=== PATIENT | female | born 1970 | race Caucasian/White ===

== ENCOUNTER 2023-08-24 12:20 | Outpatient (CLI) | payer BC, SELFPAY ==
--- NOTE | ~2023-08-24 | MM_ITS ---
EXAMINATION: MM screening romero BI w russel HISTORY: Screening TECHNIQUE: Craniocaudal and mediolateral oblique 3-D tomosynthesis images were obtained and synthetic 2-D images were generated. CAD analysis was submitted and interpreted. COMPARISON: No prior mammogram is available for comparison at this institution. BREAST PARENCHYMAL COMPOSITION: Dense: The breasts are heterogeneously dense, which may obscure small masses FINDINGS: There is focal architectural distortion laterally in the right breast on CC view. No mammog raphic evidence for malignancy in the left breast. IMPRESSION: 1. Focal architectural distortion lateral aspect of the right breast on CC view. 2. Additional mammographic views and possible breast ultrasound are recommended. BI-RADS CATEGORY 0 - INCOMPLETE STUDY, NEED ADDITIONAL IMAGING EVALUATION. Reviewed, dictated and finalized at location B. IMPRESSION: 1. Focal architectural distortion lateral aspect of the right breast on CC view . 2. Additional mammographic views and possible breast ultrasound are recommended . BI-RADS CATEGORY 0 - INCOMPLETE STUDY, NEED ADDITIONAL IMAGING EVALUATION.
== END 2023-08-24 12:21 | disposition home or self-care (01) ==
LOC: CHSIMG 12:22
PROVIDERS: PCP Internal Medicine; Visit Provider Internal Medicine
DX: Z12.31 Encounter for screening mammogram for malignant neoplasm of breast (principal); R92.8 Other abnormal and inconclusive findings on diagnostic imaging of breast
CPT/HCPCS: 77063; 77067

== ENCOUNTER 2023-10-20 12:11 | Outpatient (CLI) | payer BC, SELFPAY ==
--- NOTE | ~2023-10-20 | MMUS_ITS ---
EXAMINATION: MM diagnostic romero RT w russel, US breast RT complete HISTORY: Follow-up right breast asymmetry TECHNIQUE: Additional 3-D tomosynthesis images of the right breast were performed and synthetic 2-D i mages were generated. CAD analysis was submitted and interpreted. High resolution complete right blad[address] st ultrasound was performed. COMPARISON: 08/24/2023 BREAST PARENCHYMAL COMPOSITION: Not dense: There are scattered areas of fibroglandular density. FINDINGS: MAMMOGRAPHIC FINDINGS: There are no suspicious masses, calcifications or architectural distortion in the right breast to sug gest malignancy. ULTRASOUND: Complete US of all 4 quadrants of the right breast and retroareolar region was reviewed. Normal heter ogeneous echotexture without focal solid or cystic mass. IMPRESSION: 1. No evidence for malignancy in the right breast. 2. Routine yearly screening mammogram and regular clinical breast examination are recommended. BI-RADS Category 1: Negative Reviewed, dictated and finalized at location B. IMPRESSION: 1. No evidence for malignancy in the right breast. 2. Routine yearly screening mammogram and regular clinical breast examination a re recommended. BI-RADS Category 1: Negative
== END 2023-10-20 12:12 | disposition home or self-care (01) ==
PROVIDERS: PCP Internal Medicine; Visit Provider Internal Medicine
DX: R92.8 Other abnormal and inconclusive findings on diagnostic imaging of breast (principal)
CPT/HCPCS: 76641; 77061; 77065; G0279

== ENCOUNTER 2024-04-14 11:32 | Outpatient (CLI) | payer BC, SELFPAY ==
--- NOTE | 2024-04-14 12:43 | ECG_ITS ---
Test Date: 2024-04-14 13:02:18 Measurements Intervals [place] Rate: 68 P: 53 VA: 165 QRS: 34 QRSD: 81 T: 41 QT: 396 QTc: 422 Interpretive Statements SINUS RHYTHM LOW QRS VOLTAGE IN PRECORDIAL LEADS [QRS DEFLECTION < 1.0 mV IN CHEST LEADS] POSSIBLE ANTERIOR MYOCARDIAL INFARCTION [30 ms Q WAVE IN V3/V4, OR R < 0.2 mV IN V4], PROBABLY OLD No previous ECG available for comparison Electronically Signed On 04-14-2024 13:03:35 SHEEP CLIPPER by Arturo Hernandez M.D.
[2024-04-14 13:15] LABS: Basophils Percent Auto 0.5 % (0.2-1.2); Eosinophils Absolute Auto 0.1 K/mm3 (0-0.3); Eosinophils Percent Auto 1.9 % (0-4.4); Hematocrit 42.3 % (37.0-47.0); Hemoglobin 14.5 g/dL (12.0-15.0); Immature Granulocyte Absolute 0.01 K/mm3 (0.00-0.031); Immature Granulocyte Percent A 0.2 % (0-0.5); Lymphocytes Absolute Auto 1.43 K/mm3 (0.9-3.2); Mean Corpuscular HGB Conc 34.3 g/dl (32-36); Mean Corpuscular Hemoglobin 30.8 pg (26-34); Mean Corpuscular Volume 89.8 fl (80-100); Mean Platelet Volume 9.8 fl (7.4-10.4); Monocytes Absolute Auto 0.4 K/mm3 (0.1-0.6); Monocytes Percent Auto 7.5 % (2.6-8.5); Neutrophils Absolute Auto 3.7 K/mm3 (1.3-6.7); Neutrophils Percent Auto 64.9 % (45.5-73.1); Platelet Count Result 182 k/mm3 (150-375); Red Blood Count 4.71 M/mm3 (4.2-5.4); Red Cell Distribution Width 12.3 % (11.5-14.5); White Blood Count 5.7 K/mm3 (4.5-10.0)
[2024-04-14 13:38] LABS: INR 0.9; Prothrombin Time 13.1 Seconds (11.1-14.7)
[2024-04-14 13:40] LABS: Partial Thromboplastin Time 32.4 Seconds (22.3-36.8)
[2024-04-14 13:44] LABS: Alanine Aminotransferase 25 U/L (6-35); Albumin Level 4.8 g/dL (3.5-5.1); Alkaline Phosphatase 98 U/L (38-126); Anion Gap 5 mmol/L (4-12); Aspartate Amino Transferase 32 U/L (14-36); Bilirubin,Total 0.7 mg/dL (0.2-1.3); Blood Urea Nitrogen 19 mg/dL (7-17); Calcium 9.7 mg/dL (8.4-10.2); Carbon Dioxide 27 mmol/L (22-30); Chloride 104 mmol/L (98-107); Estimated Glomerular Filt Rate > 60; Glucose 90 mg/dL (65-110); Sodium 136 mmol/L (137-145)
== END 2024-04-14 11:33 | disposition home or self-care (01) ==
LOC: ANHSURGERY 11:41
PROVIDERS: Urology; PCP Internal Medicine; Visit Provider Obstetrics & Gynecology
DX: R94.31 Abnormal electrocardiogram [ECG] [EKG] (principal); N81.4 Uterovaginal prolapse, unspecified; I10 Essential (primary) hypertension
CPT/HCPCS: 36415; 80053; 85025; 85610; 85730; 86850; 86900; 86901; 93005

== ENCOUNTER 2024-05-04 15:34 | Outpatient (CLI) | payer BC, SELFPAY ==
--- NOTE | 2024-05-04 | ECHO_ITS ---
Patient Info Name: Raine Cota Age: 53 years : 1970 Gender: Female Ht: 62 in Wt: 170 lbs BSA: 1.87 m2 HR: 61 bpm BP: 158 / 99 mmHg Technical Quality: Good Exam Date: 05/04/2024 3:45 PM Exam Location: Echo Lab Patient Status: Outpatient Admit Date: 05/04/2024 Staff Ordering Physician: Delroy Miller MD Sleep Scientist: Olesya Munson RDCS Attending Provider: Delroy Miller MD Exam Type: CA echo doppler color flow Study Info Indications - ABNORMAL EKG Complete two-dimensional, color flow and Doppler transthoracic echocardiogram is performed. Summary 1. Complete two-dimensional, color flow and Doppler transthoracic echocardiogram is performed. 2. LVEF. 71% MR mild TR trace. Left Ventricular Outflow Tract Name Value Normal LVOT 2D LVOT Diameter 1.8 cm LVOT Doppler LVOT Peak Gradient 3 mmHg LVOT Mean Gradient 2 mmHg LVOT VTI 22 cm LVOT VTI/AV VTI Ratio 0.7 LVOT Stroke Volume 58 ml LVOT CO 2.8 l/min LVOT CI 1.5 l/min/m2 Pulmonic Valve Name Value Normal RVOT Doppler RVOT Peak Gradient 2 mmHg PV Doppler PV Peak Gradient 2 mmHg Mitral Valve Name Value Normal MV Doppler MV Peak Gradient 4 mmHg MV Mean Gradient 1 mmHg MV Decel [place] 444 cm/s2 MV PHT 50 ms MV Area (PHT) 4.4 cm2 4.0-5.0 MV Area (Cont Eq VTI) 1.7 cm2 MV Diastolic Function MV E Peak Velocity 77 cm/s MV A Peak Velocity 80 cm/s MV E/A 1.0 MV Decel Time 174 ms MV Annular TDI MV E/e' (Septal) 7.1 <=8.0 MV E/e' (Lateral) 6.3 <=8.0 MV E/e' (Average) 6.7 Tricuspid Valve Name Value Normal Estimated PAP/RSVP RA Pressure 10 mmHg <=5 Aorta Name Value Normal Ascending Aorta Ao Root Diameter (MM) 3.3 cm Ao Root Diam Index (MM) 1.8 cm/m2 Aortic Valve Name Value Normal AV Doppler AV Peak Velocity 152 cm/s AV Peak Gradient 9 mmHg AV Mean Gradient 4 mmHg AV VTI 33 cm AV Area (Cont Eq VTI) 1.7 cm2 >=3.0 AV Area (Cont Eq Renzo) 1.6 cm2 AV Regurgitation 2D LVOT Area 2.7 cm2 Ventricles Name Value Normal LV Dimensions 2D/MM IVS Diastolic Thickness (2D) 1.3 cm 0.6-1.0 LVID Diastole (2D) 4.1 cm 3.8-5.2 LVIW Diastolic Thickness (2D) 1.2 cm 0.6-0.9 LVID Systole (2D) 2.7 cm 2.2-3.5 LVOT Diameter 1.8 cm LV Mass (2D Cubed) 187.07 g 67.00-162.00 LV Mass Index (2D Cubed) 100 g/m2 43-95 Relative Wall Thickness (2D) 0.60 LV Fractional Shortening/Ejection Fraction 2D/MM LV Fractional Shortening (2D) 34 % 27-45 LV EF (2D Teicholz) 64 % 54-74 LV Diastolic Volume (4C MOD) 67 ml LV EF (4C MOD) 69 % LV Diastolic Volume (2C MOD) 77 ml LV EF (2C MOD) 76 % LV Diastolic Volume (BP MOD) 72 ml 46-106 LV Diastolic Volume Index (BP MOD) 39 ml/m2 29-61 LV Systolic Volume (BP MOD) 21 ml 14-42 LV Systolic Volume Index (BP MOD) 11 ml/m2 8-24 LV EF (BP MOD) 71 % 54-74 LV Diastolic Length (4C) 7.6 cm LV Systolic Length (4C) 6.3 cm LV Stroke Volume (4C MOD) 46 ml Atria Name Value Normal LA Dimensions LA Dimension (MM) 3.0 cm 2.7-3.8 LA Volume (4C A-L) 23 ml LA Volume (BP A-L) 29 ml RA Dimensions RA Area (4C) 10.0 cm2 <=18.0 Report Signatures
== END 2024-05-04 15:35 | disposition home or self-care (01) ==
PROVIDERS: PCP Internal Medicine; Visit Provider Internal Medicine
DX: R94.31 Abnormal electrocardiogram [ECG] [EKG] (principal); I25.2 Old myocardial infarction
CPT/HCPCS: 93306

== ENCOUNTER 2024-06-05 00:39 | Day surgery (SDC) | payer BC, SELFPAY ==
[2024-04-14 11:56] VITALS: BP 139/88; PULSE 82; RESP 16; TEMP 37.2; O2SAT 98; BMI 30.9
--- NOTE | 2024-04-14 12:15 | PC.NURSE ---
Addendum entered by Jed Jones RN 05/26/24 13:14: Spoke with patient, New surgery date 06-05-2024 to arrive at 1000 for 1200 surgery. Hold vitamins 06-02-2024. All other instructions reviewed with patient. Original Note: Report to the Outpatient Waiting Room, entrance under the green pavilion located off [facility], at time ___10:00____ on date ___04/24/24____. Planned Procedure Time: ___12:00PM .? Time changes happen often and if your time is changed the preop area will call you the afternoon before. - You and your visitor will be asked to self-screen and do not enter if you have any COVID symptoms. Please call surgeon if you need to reschedule. - A mask is optional within the hospital at this time. Patients may have clear liquids (water, carbonated beverages, clear teas, apple juice) until 3 hours prior to surgery with a maximum of 20 ounces. - No food from midnight until time of surgery and no smoking. This includes no chewing gum, candy or mints. Take only the following medications with a SIP of water on the morning of surgery: AMLODIPINE, FLUOXETINE DO NOT STOP ANY OF YOUR OTHER PRESCRIPTION MEDICATIONS PRIOR TO SURGERY EXCEPT THE FOLLOWING Medications to discontinue per physician __HOLD ALL VITAMINS/SUPPLEMENTS 7 DAYS Date to take last dose___04/16/24 Please no make-up, nail tamazight, hairspray, perfume, deodorant, or body powder the day of surgery.? No jewelry (including any body piercings) or valuables the day of surgery, leave them at home.? Please take a shower or bath the night before, or the morning of, surgery with an antibacterial soap.? Wear comfortable, loose fitting clothing.? - Jewelry must be removed prior to entering the operating room.? Rings and piercings that are not removed may be cut off. - The hospital will not accept responsibility for valuables.? - Please leave all valuables, including medications, at home the day of surgery. If you are going home after surgery, a licensed river driver must drive you home.? - NO public transportation without another adult if you receive anesthesia. - We recommend that an adult stay with you for 24 hours following discharge. - We also recommend that you do not drive, make important decision, drink alcoholic beverages, or take any drugs that were not prescribed by your health care provider for at least 24 hours after your discharge time. Follow any additional instructions given to you from your surgeon. Telephone instructions given to ___PATIENT and asked if any additional questions and then verbalized understanding. Patient advised to call surgeon office or pre surgery nurse liaison [phone] if any additional questions.
--- NOTE | 2024-04-18 12:16 | P.HP_ITS ---
H&P: HPI History of Present Illness Date/Time: 04/18/24 12:16 Chief Complaint: Pelvic prolapse Narrative: 53-year-old female admitted for robotic supracervical hysterectomy and bilateral salpingo-oophorectomy secondary to uterine prolapse she also undergo sacral colpopexy with the Dr. Angel risks and benefits reviewed in great detail she had all questions answered and asked to proceed Review of Systems Review of Systems: All systems reviewed & are unremarkable except as noted in HPI and below PMFSH Social History Social History Smoking packs per day: 1 Smoking cigarettes per day: 20.0 Years smoked: 20 Smoking pack-years: 20.00 Smoking status: Current every day smoker Tobacco type: cigarettes and e-cigarettes/vaping Additional smoking assessment comments: VAPES ON AND OFF ALL DAY, QUIT CIGARETTES IN 2010 Alcohol intake: current Drinks per week: 4 Living arrangements: with family Additional living arrangements comments: HUSB Spiritual care concerns: No Meds Home Medications and Allergies Home Medications ?Medication ?Instructions ?Recorded ?Confirmed ?Type amlodipine 5 mg tablet 5 mg PO QAM 04/14/24 04/14/24 History calcium carbonate 600 mg PO DAILY 04/14/24 04/14/24 History fluoxetine 10 mg capsule 10 mg PO DAILY 04/14/24 04/14/24 History lysine 1,000 mg tablet 4,500 mg PO DAILY 04/14/24 04/14/24 History pantoprazole 40 mg tablet,delayed 40 mg PO DAILY PRN REFLUX 04/14/24 04/14/24 History release Allergies Allergy/AdvReac Type Severity Reaction Status Date / Time penicillin G Allergy Hives Verified 04/14/24 11:50 oxybutynin AdvReac Vomiting, Verified 04/14/24 11:50 DIARRHEA Exam Const: General: cooperative, healthy appearing, comfortable and no acute distress Nutritional Appearance: average body habitus Orientation/consciousness: oriented to person, oriented to place and oriented to time HENMT: Head: normal to inspection Resp: Effort & Inspection: normal respiratory effort Cardio: Rate: regular rate Rhythm: regular rhythm Heart sounds: S1 normal heart sound present and S2 normal heart sound present GI: Inspection: normal to inspection : External Female Exam: normal external appearance Speculum Exam - Vagina: normal appearance of the vagina Speculum Exam - Cervix: normal appearance of the cervix (Second-degree to third-degree prolapse) Bimanual exam- vagina & uterus: non-tender Bimanual Exam- Adnexa, other: normal adnexae Assessment and Plan Assessment and plan (1) Uterine prolapse: Code(s): N81.4 - Uterovaginal prolapse, unspecified Status: Acute Plan Proceed with robotic supracervical hysterectomy and bilateral salpingo- oophorectomy
--- NOTE | 2024-05-26 13:15 | PC.NURSE ---
Patient says no changes in health hx since preop interview.
--- NOTE | 2024-06-02 08:20 | P.HP_ITS ---
H&P: HPI History of Present Illness Date/Time: 06/02/24 08:20 Chief Complaint: pelvic organ prolapse, stress incontinence Narrative: she has symptomatic uterine prolapse and stress incontinence confirmed on urod ynamics Review of Systems Review of Systems: All systems reviewed & are unremarkable except as noted in HPI and below PMFSH Social History Social History Smoking packs per day: 1 Smoking cigarettes per day: 20.0 Years smoked: 20 Smoking pack-years: 20.00 Smoking status: Current every day smoker Tobacco type: cigarettes and e-cigarettes/vaping Additional smoking assessment comments: VAPES ON AND OFF ALL DAY, QUIT CIGARETTES IN 2010 Alcohol intake: current Drinks per week: 4 Living arrangements: with family Additional living arrangements comments: [facility]USB Spiritual care concerns: No Meds Home Medications and Allergies Home Medications ?Medication ?Instructions ?Recorded ?Confirmed ?Type amlodipine 5 mg tablet 5 mg PO QAM 04/14/24 04/14/24 History calcium carbonate 600 mg PO DAILY 04/14/24 04/14/24 History fluoxetine 10 mg capsule 10 mg PO DAILY 04/14/24 04/14/24 History lysine 1,000 mg tablet 4,500 mg PO DAILY 04/14/24 04/14/24 History pantoprazole 40 mg tablet,delayed 40 mg PO DAILY PRN REFLUX 04/14/24 04/14/24 History release Allergies Allergy/AdvReac Type Severity Reaction Status Date / Time penicillin G Allergy Hives Verified 05/26/24 13:11 oxybutynin AdvReac Vomiting, Verified 05/26/24 13:11 DIARRHEA Exam Narrative: hypermobility of the urethra uterine prolapse to the level of the introitus Assessment and Plan Assessment and plan (1) Uterine prolapse: Code(s): N81.4 - Uterovaginal prolapse, unspecified Status: Acute (2) VIJI (stress urinary incontinence, female): Code(s): N39.3 - Stress incontinence (female) (male) Status: Acute Plan plan for robotic colpopexy and urethral sling. Understands risks of bleeding, infection, damage surrounding organs, damage to the urinary tract, vaginal mesh extrusion, urinary tract mesh erosion, diskitis, hip and leg pain, dyspareunia, persistent or recurrent stress incontinence or prolapse. Agrees to proceed
--- NOTE | 2024-06-04 16:06 | P.HP_ITS ---
H&P: HPI History of Present Illness Date/Time: 06/04/24 16:06 Chief Complaint: uterine prolapse Narrative: 53 year 2 para 2 seen in conjunction with Dr. Angel for patient complaining of stress urinary incontinence and uterine prolapse. After discussing both position she opts for robotic supracervical hysterectomy and bilateral salpingo-oophorectomy. She understands removal of her ovaries will ma ke her permanently infertile and the risks benefits pulse socially physically were reviewed with. Risks and benefits of the procedure reviewed including but not exclusive , aspiration, bleeding, transfusion, perforation injury to bowel, bladder, ureters, or other internal organs with the need for open laparotomy. She received the ACOG handout entitled hysterectomy as well as the de [place] handout. She had all questions answered. She asked to proceed Review of Systems Review of Systems: All systems reviewed & are unremarkable except as noted in HPI and below PMFSH Social History Social History Smoking packs per day: 1 Smoking cigarettes per day: 20.0 Years smoked: 20 Smoking pack-years: 20.00 Smoking status: Current every day smoker Tobacco type: cigarettes and e-cigarettes/vaping Additional smoking assessment comments: VAPES ON AND OFF ALL DAY, QUIT CIGARETTES IN 2010 Alcohol intake: current Drinks per week: 4 Living arrangements: with family Additional [facility] Spiritual care concerns: No Meds Home Medications and Allergies Home Medications ?Medication ?Instructions ?Recorded ?Confirmed ?Type amlodipine 5 mg tablet 5 mg PO QAM 04/14/24 04/14/24 History calcium carbonate 600 mg PO DAILY 04/14/24 04/14/24 History fluoxetine 10 mg capsule 10 mg PO DAILY 04/14/24 04/14/24 History lysine 1,000 mg tablet 4,500 mg PO DAILY 04/14/24 04/14/24 History pantoprazole 40 mg tablet,delayed 40 mg PO DAILY PRN REFLUX 04/14/24 04/14/24 History release Allergies Allergy/AdvReac Type Severity Reaction Status Date / Time penicillin G Allergy Hives Verified 05/26/24 13:11 oxybutynin AdvReac Vomiting, Verified 05/26/24 13:11 DIARRHEA Exam Const: General: cooperative, healthy appearing and comfortable Nutritional Appearance: average body habitus Orientation/consciousness: oriented to person, oriented to place and oriented to time HENMT: Head: normal to inspection Resp: Effort & Inspection: normal respiratory effort Cardio: Rate: regular rate Rhythm: regular rhythm Heart sounds: S1 normal heart sound present and S2 normal heart sound present GI: Inspection: normal to inspection : External Female Exam: normal external appearance Speculum Exam - Vagina: normal appearance of the vagina Speculum Exam - Cervix: normal appearance of the cervix ( 2nd and 3rd degree prolapse present) Bimanual exam- vagina & uterus: uterine size normal Bimanual Exam- Adnexa, other: normal adnexae Assessment and Plan Assessment and plan (1) Uterine prolapse: Code(s): N81.4 - Uterovaginal prolapse, unspecified Status: Acute (2) VIJI (stress urinary incontinence, female): Code(s): N39.3 - Stress incontinence (female) (male) Status: Acute Plan proceed with robotic supracervical hysterectomy and bilateral salpingo- oophorectomy
[2024-06-05] VITALS (9 sets, daily range): BP systolic 115–148; BP diastolic 65–87; PULSE 60–90; RESP 10–20; TEMP 36.2–37.3; O2SAT 94–100
--- OUTSIDE RECORDS SUMMARY | 2024-06-05 00:43 | XMS_ITS | Clinical Summary ---
Author Organization [facility] Address [address] [place] [address]. [place] [address] [place] [address] Care Team Providers Care Division Manager Name Role Phone Unavailable Primary Care Provider Unavailabl e Social History Tobacco Use Types Packs/Day Years Used Date Smoking Tobacco: Never Assessed Comments Unknown Sex and Gender Information Value Date Recorded Sex Assigned at Not on file Legal Sex Female 6:11 PM CDT Gender Identity Not on file Sexual Orientation Not on file Last Filed Vital Signs Vital Sign Reading Time Taken Comments Blood Pressure 140/82 10/25/2012 11:11 AM CDT Pulse - - Temperature - - Respiratory Rate - - Oxygen Saturation - - Inhaled Oxygen Concentration - - Weight 73 kg (161 lb) 10/25/2012 11:11 AM CDT Height 165.1 cm (5' 5 ) 10/25/2012 11:11 AM CDT Body Mass Index 26.79 10/25/2012 11:11 AM CDT Plan of Treatment Health Maintenance Due Date Last Done Comments Cervical Cancer Screening Pa p Smear (Age 30 to 64) Every 3 Years 1972 Colorectal Cancer Screening Colonoscopy (10 Years) 1972 Annual Physical 07/30/1975 Hepatitis C 1990 DTaP, Tdap and Td Vaccines ( 1 - Tdap) 07/30/1991 Hepatitis B Vaccines (1 of 3 - 19+ 3-dose series) 07/30/1991 Cervical Cancer Screening Pa p with HPV Testing (Age 30 to 64) Every 5 Years 2002 Cervical Cancer Screening with HPV 2002 Mammogram Screening 2012 Zoster Vaccines (1 of 2) 2022 COVID-19 Vaccine ( - 2023-2 5 season) 2024 Influenza Adult (#1) 2024 Meningococcal B Vaccine Aged Out No l onger eligible based on patient's age to complete this topic Meningococcal Vaccine Aged Out No gerardo nel eligible based on patient's age to complete this topic Pneumococcal Vaccine: Pediat rics (0 to 5 Years) and At-Risk Patients (6 to 64 Years) Aged Out No longer eligible b ased on patient's age to complete this topic RSV Immunizations Under 20 Months Aged Out No longer eligible based on patient's age to complete this topic
--- OUTSIDE RECORDS SUMMARY | 2024-06-05 00:43 | XMS_ITS | Clinical Summary ---
Author Organization [facility] Address [address] [place] [address] Care Team Providers Care Engineer Soils Name Role Phone Delroy Miller MD Primary Care Provider Allergies Active Allergy Reactions Criticality Noted Date Comments Penicillins Hives Medium 04/13/2013 Hives Medications amLODIPine (NORVASC) 5 mg tablet 04/09/2022 Active aspirin 81 mg enteric coated tablet Take 1 tablet (81 mg total) by mouth daily Active multivitamin tabletIndication s:Vitamin Deficiency Prevention Take 1 tablet by mouth Active calcium carbonate-vit D3-min 600 mg calcium- 200 unit tablet Take by mouth Active vitfzxsu-tzcj-ly llag-hyalur ac [id number] mg capsule Take by mouth Active FLUoxetine 10 mg tablet/capsule Take 1 tablet/caps ule (10 mg total) by mouth daily 90 tablet/capsul e 1 12/21/2023 Active Active Problems No known active problems Encounters Date Type Department Care Team Description 04/03/2024 Documentation [facility] [address] [place] [phone] Diana Davis RN 04/03/2024 Orders Only [facility] [address] [place] [phone] Diana Davis, RN Multiple sclerosis (HCC) (Primary Dx) 03/14/2024 9:45 PM ESTATE TAX EXAMINER - 03/14/2024 11:59 PM ESTATE TAX EXAMINER Hospital Encounter [facility] [address] [place] [address] Discharge Disposition: Discharge to home or self care 03/14/2024 9:44 PM ESTATE TAX EXAMINER - 03/14/2024 11:59 PM ESTATE TAX EXAMINER Hospital Encounter [facility]) [address] [place] [id number] Discharge Disposition: Discharge to home or self care 03/14/2024 1:30 PM ESTATE TAX EXAMINER Office Visit [facility] [address] [place] [phone] Merrick Yuen MD Multiple sclerosis (HCC) (Primary Dx) 03/14/2024 8:52 AM ESTATE TAX EXAMINER - 03/14/2024 11:59 PM ESTATE TAX EXAMINER Hospital Encounter [facility] [address] [place] [address] Merrick Yuen MD Multiple sclerosis (HCC) Discharge Disposition: Discharge to home or self care 03/14/2024 8:51 AM ESTATE TAX EXAMINER - 03/14/2024 11:59 PM ESTATE TAX EXAMINER Hospital Encounter [facility] [address] [place] [address] Merrick Yuen MD Multiple sclerosis (HCC) Discharge Disposition: Discharge to home or self care from Last 3 Months Social History Tobacco Use Types Packs/Day Years Used Date Smoking Tobacco: Former Cigarettes S tarted: 12/08/2012 Tobacco Cessation:Counseling Given: Not Answered Comments Unknown Sex and Gender Information Value Date Recorded Sex Assigned at Not on file Legal Sex Female 3:13 AM ESTATE TAX EXAMINER Gender Identity Female 03/10/2024 5:43 AM CDT Sexual Orientation Straight 03/10/2024 5: 43 AM CDT Obstetrics History Last Filed Vital Signs Vital Sign Reading Time Taken Comments Blood Pressure 112/80 03/14/2024 12:51 PM ESTATE TAX EXAMINER Pulse 103 03/14/2024 12:51 PM ESTATE TAX EXAMINER Temperature 36.3 ??C (97.3 ??F) 03/14/2024 12:[address] Respiratory Rate - - Oxygen Saturation 95% 04/07/2013 11:47 AM ESTATE TAX EXAMINER Inhaled Oxygen Concentration - - Weight 75.8 kg (167 lb 3.2 oz) 03/14/2024 12:51 PM ESTATE TAX EXAMINER Height 157.5 cm (5' 2 ) 04/07/2013 11:47 AM ESTATE TAX EXAMINER Body Mass Index - - Plan of Treatment Health Maintenance Due Date Last Done Comments Cervical Cancer Screening 1972 Colon Cancer Screening-Colonoscopy 1972 Depression Screening 1972 Hepatitis C Screening 1972 Hepatitis B Screening 1990 Regular Well Visit/Exam 18-64 1990 Breast Cancer Screening-Mammogram 04/27/2014 013 Zoster Vaccine (2 of 2) 10/15/2023 08/20/2023 Influenza Vaccine (#1) 2024 DTaP/Tdap/Td Vaccine (2 - Td or Tdap) 2033 07/30/2023 Pneumococcal vaccine <65 Aged Out No longer eligible based on patient's age to complete this topic Procedures Procedure Name Priority Date/Time Associated Diagnosis Comments NEURO MR OUTSIDE REFERENCE Routine 03/14/2024 9:45 PM ESTATE TAX EXAMINER NEURO MR OUTSIDE REFERENCE Routine 03/14/2024 9:44 PM ESTATE TAX EXAMINER MRI SPINE CERVICAL THORACIC W WO CONTRAST Schedule Routine, Read Routine (OP Routine) 03/14/2024 11:58 AM ESTATE TAX EXAMINER Multiple sclerosis (HCC) MRI MS BRAIN 3T PROTOCOL W WO CONTRAST Schedule Routine, Read Routine (OP Routine) 03/14/2024 11:58 AM ESTATE TAX EXAMINER Multiple sclerosis (HCC) SCREENING MAMMOGRAM 2D BILATERAL Routine 04/27/2013 8:03 AM ESTATE TAX EXAMINER from Last 3 Months or Most Recently Relevant to Health Maintenance Results * Neuro MR Outside Reference (03/14/2024 9:45 PM ESTATE TAX EXAMINER) Impressions [facility] - 03/14/2024 9:45 PM ESTATE TAX EXAMINER These images are for Reference purposes only and have not been reviewed by [facility]. ??There will be no report generated by a [facility]iologist. Narrative [facility] - 03/14/2024 9:45 PM ESTATE TAX EXAMINER EXAMINATION: ??Images For Reference Purposes Only us Min Wilfrid SAVAGE IMG MRI PROCEDURES Final Result [email or web address] * Neuro MR Outside Reference (03/14/2024 9:44 PM ESTATE TAX EXAMINER) Impressions [facility] - 03/14/2024 9:44 PM ESTATE TAX EXAMINER These images are for Reference purposes only and have not been reviewed by [facility]. ??There will be no report generated by a [facility]iologist. Narrative [facility] - 03/14/2024 9:44 PM ESTATE TAX EXAMINER EXAMINATION: ??Images For Reference Purposes Only us Min Wilfrid SAVAGE IMG MRI PROCEDURES Final Result Performing Organization Address [facility] Co de Phone Number [email or web address] * MRI Spine Cervical and Thoracic W WO Contrast (03/14/2024 11:58 AM ESTATE TAX EXAMINER) Anatomical Region Laterality Modality Spine N/A Magnetic Resonan ce 03/14/2024 1:37 PM ESTATE TAX EXAMINER Impressions 03/14/2024 2:40 PM ESTATE TAX EXAMINER 1. ??Overall increase in number of intracranial T2 hyperintense lesions when compared to examination from 2019. ??Many of these lesions exhibit central vein sinuses read in detail above. ??No suspicious enhancing lesions in the brain. 2. ??Multiple T2 hyperintensities within the cervical spinal cord at C2 and C3 compatible with demyelinating spinal lesions. ??No suspicious enhancing lesion in the spinal cord. 3. ??Degenerative changes in the cervical spine without to moderate canal stenosis at C5-C6. 4. ??No significant degenerative changes in the thoracic spine. Dictated by: Steve Chappell MD The radiology attending physician has personally reviewed this study, and had reviewed and/or edited this written report and agrees with it. Electronically signed by: Yogesh Gardiner MD Narrative 03/14/2024 2:40 PM ESTATE TAX EXAMINER EXAMINATION: 1. Magnetic resonance imaging (MRI) of the brain and brainstem without and with contrast 2. Magnetic resonance imaging (MRI) of the cervical spine without and with contrast 3. Magnetic resonance imaging (MRI) of the thoracic spine without and with contrast HISTORY: Multiple sclerosis TECHNIQUE: Multiplanar multi-weighted MRI of the brain, brainstem was performed without and with intravenous contrast using the multiple sclerosis protocol, which includes high resolution 3D T1-weighted, FLAIR, and T2*-weighted gradient echo images. Multiplanar multi-weighted MRI of the cervical spine was performed without and with intravenous contrast using the standard protocol. Multiplanar multi-weighted MRI of the thoracic was performed without and with intravenous contrast using the standard protocol. Scanner: [employer] Strength: 3T Contrast information: 14 mL Gadoterate Meglumine The post-contrast scan was performed approximately 5 minutes after IV contrast administration. COMPARISON: 05/25/2018, FINDINGS: BRAIN: There are multiple foci of hyperintensity on FLAIR and T2-weighted images within the white matter compatible with demyelinating plaques of multiple sclerosis. ??When compared to examination 05/25/2018, while assessment is limited by lack of transaxial FLAIR sequence on the comparison study there appears to be increasing conspicuity and number of T2/FLAIR hyperintensities noted throughout the brain. This includes periventricular, callosal, cortical or juxtacortical, and brainstem lesions. ?? New Brain T2 Lesions: Greater than 15 T1 Hypointense Black Holes : Greater than 15 Enhancing Brain Lesions: 0 T2/FLAIR [place] of Disease: Moderate, between 10 and 30 typical lesions Parenchymal Volume Loss: None Central Vein Sign: 6 or more CVS+ lesions, reference lesions including series [id number] images 108, 110, 102 The visualized portions of the optic nerves are normal. The scalp and calvarium are normal. The superior sagittal sinus demonstrates normal venous flow. The corpus callosum is normal in shape and signal intensity. The posterior fossa is unremarkable. The pituitary and sella are normal. The brainstem and craniocervical junction are unremarkable. Diffusion weighted images reveal no hyperintensities to suggest acute cerebral infarction. The susceptibility weighted sequences reveal no evidence of acute or chronic hemorrhage. The ventricles are normal in size and position without evidence of hydrocephalus. The paranasal sinuses are normal. The visualized portions of the mastoids are unremarkable. The orbits appear normal. Normal flow voids are demonstrated in the carotid arteries and basilar artery. CERVICAL SPINE: New Spine T2 Lesions: 2 (series [id number] images 19, 18) Enhancing Spine Lesions: 0 Multiple degenerative changes noted throughout cervical spine including stepwise retrolisthesis of C5-C7 and focal cervical kyphosis centered at C7. ??Multilevel degenerative disc disease is also noted. Vertebral bodies demonstrate normal signal intensity on all sequences. No acute fracture is identified. Degenerative changes noted about the craniocervical junction. The visualized portions of the skull base and the posterior fossa are normal. Abnormal signal enhancement is present within the dorsal spinal cervical spinal cord at the level of C2, C3 (series [id number] since images 14, 18, 19). Mild multilevel degenerative disc disease. There are no annular fissures identified. No soft tissue abnormality is identified. Normal signal voids are present in the vertebral arteries. Multilevel degenerative changes noted throughout the cervical spine without to moderate canal stenosis at C5-C6 and severe left neural foraminal stenosis at that level. THORACIC SPINE: New Spine T2 Lesions: 0 Enhancing Spine Lesions: 0 The alignment of the thoracic spine is normal. Vertebral bodies demonstrate normal signal intensity on all sequences. There are no compression fractures. The spinal cord demonstrates normal signal intensity on all sequences. Mild multilevel degenerative disc disease. Limited views of the chest and abdomen show no soft tissue abnormality. The aorta is normal. Procedure Note Yogesh Gardiner MD - 03/14/2024 EXAMINATION: 1. Magnetic resonance imaging (MRI) of the brain and brainstem without and with contrast 2. Magnetic resonance imaging (MRI) of the cervical spine without and with contrast 3. Magnetic resonance imaging (MRI) of the thoracic spine without and with contrast HISTORY: Multiple sclerosis TECHNIQUE: Multiplanar multi-weighted MRI of the brain, brainstem was performed without and with intravenous contrast using the multiple sclerosis protocol, which includes high resolution 3D T1-weighted, FLAIR, and T2*-weighted gradient echo images. Multiplanar multi-weighted MRI of the cervical spine was performed without and with intravenous contrast using the standard protocol. Multiplanar multi-weighted MRI of the thoracic was performed without and with intravenous contrast using the standard protocol. Scanner: [employer] Strength: 3T Contrast information: 14 mL Gadoterate Meglumine The post-contrast scan was performed approximately 5 minutes after IV contrast administration. COMPARISON: 05/25/2018, FINDINGS: BRAIN: There are multiple foci of hyperintensity on FLAIR and T2-weighted images within the white matter compatible with demyelinating plaques of multiple sclerosis. When compared to examination 05/25/2018, while assessment is limited by lack of transaxial FLAIR sequence on the comparison study there appears to be increasing conspicuity and number of T2/FLAIR hyperintensities noted throughout the brain. This includes periventricular, callosal, cortical or juxtacortical, and brainstem lesions. New Brain T2 Lesions: Greater than 15 T1 Hypointense Black Holes : Greater than 15 Enhancing Brain Lesions: 0 T2/FLAIR [place] of Disease: Moderate, between 10 and 30 typical lesions Parenchymal Volume Loss: None Central Vein Sign: 6 or more CVS+ lesions, reference lesions including series [id number] images 108, 110, 102 The visualized portions of the optic nerves are normal. The scalp and calvarium are normal. The superior sagittal sinus demonstrates normal venous flow. The corpus callosum is normal in shape and signal intensity. The posterior fossa is unremarkable. The pituitary and sella are normal. The brainstem and craniocervical junction are unremarkable. Diffusion weighted images reveal no hyperintensities to suggest acute cerebral infarction. The susceptibility weighted sequences reveal no evidence of acute or chronic hemorrhage. The ventricles are normal in size and position without evidence of hydrocephalus. The paranasal sinuses are normal. The visualized portions of the mastoids are unremarkable. The orbits appear normal. Normal flow voids are demonstrated in the carotid arteries and basilar artery. CERVICAL SPINE: New Spine T2 Lesions: 2 (series [id number] images 19, 18) Enhancing Spine Lesions: 0 Multiple degenerative changes noted throughout cervical spine including stepwise retrolisthesis of C5-C7 and focal cervical kyphosis centered at C7. Multilevel degenerative disc disease is also noted. Vertebral bodies demonstrate normal signal intensity on all sequences. No acute fracture is identified. Degenerative changes noted about the craniocervical junction. The visualized portions of the skull base and the posterior fossa are normal. Abnormal signal enhancement is present within the dorsal spinal cervical spinal cord at the level of C2, C3 (series [id number] since images 14, 18, 19). Mild multilevel degenerative disc disease. There are no annular fissures identified. No soft tissue abnormality is identified. Normal signal voids are present in the vertebral arteries. Multilevel degenerative changes noted throughout the cervical spine without to moderate canal stenosis at C5-C6 and severe left neural foraminal stenosis at that level. THORACIC SPINE: New Spine T2 Lesions: 0 Enhancing Spine Lesions: 0 The alignment of the thoracic spine is normal. Vertebral bodies demonstrate normal signal intensity on all sequences. There are no compression fractures. The spinal cord demonstrates normal signal intensity on all sequences. Mild multilevel degenerative disc disease. Limited views of the chest and abdomen show no soft tissue abnormality. The aorta is normal. IMPRESSION: 1. Overall increase in number of intracranial T2 hyperintense lesions when compared to examination from 2019. Many of these lesions exhibit central vein sinuses read in detail above. No suspicious enhancing lesions in the brain. 2. Multiple T2 hyperintensities within the cervical spinal cord at C2 and C3 compatible with demyelinating spinal lesions. No suspicious enhancing lesion in the spinal cord. 3. Degenerative changes in the cervical spine without to moderate canal stenosis at C5-C6. 4. No significant degenerative changes in the thoracic spine. Dictated by: Steve Chappell MD The radiology attending physician has personally reviewed this study, and had reviewed and/or edited this written report and agrees with it. Electronically signed by: Yogesh Gardiner MD Merrick Yuen MD IMG MRI PROCEDURES Final Result * MRI MS Brain 3T Protocol W WO Contrast (03/14/2024 11:58 AM ESTATE TAX EXAMINER) Anatomical Region Laterality Modality Head and Neck N/A Magnetic Resonan ce 03/14/2024 1:37 PM ESTATE TAX EXAMINER Impressions 03/14/2024 2:40 PM ESTATE TAX EXAMINER 1. ??Overall increase in number of intracranial T2 hyperintense lesions when compared to examination from 2019. ??Many of these lesions exhibit central vein sinuses read in detail above. ??No suspicious enhancing lesions in the brain. 2. ??Multiple T2 hyperintensities within the cervical spinal cord at C2 and C3 compatible with demyelinating spinal lesions. ??No suspicious enhancing lesion in the spinal cord. 3. ??Degenerative changes in the cervical spine without to moderate canal stenosis at C5-C6. 4. ??No significant degenerative changes in the thoracic spine. Dictated by: Steve Chappell MD The radiology attending physician has personally reviewed this study, and had reviewed and/or edited this written report and agrees with it. Electronically signed by: Yogesh Gardiner MD Narrative 03/14/2024 2:40 PM ESTATE TAX EXAMINER EXAMINATION: 1. Magnetic resonance imaging (MRI) of the brain and brainstem without and with contrast 2. Magnetic resonance imaging (MRI) of the cervical spine without and with contrast 3. Magnetic resonance imaging (MRI) of the thoracic spine without and with contrast HISTORY: Multiple sclerosis TECHNIQUE: Multiplanar multi-weighted MRI of the brain, brainstem was performed without and with intravenous contrast using the multiple sclerosis protocol, which includes high resolution 3D T1-weighted, FLAIR, and T2*-weighted gradient echo images. Multiplanar multi-weighted MRI of the cervical spine was performed without and with intravenous contrast using the standard protocol. Multiplanar multi-weighted MRI of the thoracic was performed without and with intravenous contrast using the standard protocol. Scanner: [employer] Strength: 3T Contrast information: 14 mL Gadoterate Meglumine The post-contrast scan was performed approximately 5 minutes after IV contrast administration. COMPARISON: 05/25/2018, FINDINGS: BRAIN: There are multiple foci of hyperintensity on FLAIR and T2-weighted images within the white matter compatible with demyelinating plaques of multiple sclerosis. ??When compared to examination 05/25/2018, while assessment is limited by lack of transaxial FLAIR sequence on the comparison study there appears to be increasing conspicuity and number of T2/FLAIR hyperintensities noted throughout the brain. This includes periventricular, callosal, cortical or juxtacortical, and brainstem lesions. ?? New Brain T2 Lesions: Greater than 15 T1 Hypointense Black Holes : Greater than 15 Enhancing Brain Lesions: 0 T2/FLAIR [place] of Disease: Moderate, between 10 and 30 typical lesions Parenchymal Volume Loss: None Central Vein Sign: 6 or more CVS+ lesions, reference lesions including series [id number] images 108, 110, 102 The visualized portions of the optic nerves are normal. The scalp and calvarium are normal. The superior sagittal sinus demonstrates normal venous flow. The corpus callosum is normal in shape and signal intensity. The posterior fossa is unremarkable. The pituitary and sella are normal. The brainstem and craniocervical junction are unremarkable. Diffusion weighted images reveal no hyperintensities to suggest acute cerebral infarction. The susceptibility weighted sequences reveal no evidence of acute or chronic hemorrhage. The ventricles are normal in size and position without evidence of hydrocephalus. The paranasal sinuses are normal. The visualized portions of the mastoids are unremarkable. The orbits appear normal. Normal flow voids are demonstrated in the carotid arteries and basilar artery. CERVICAL SPINE: New Spine T2 Lesions: 2 (series [id number] images 19, 18) Enhancing Spine Lesions: 0 Multiple degenerative changes noted throughout cervical spine including stepwise retrolisthesis of C5-C7 and focal cervical kyphosis centered at C7. ??Multilevel degenerative disc disease is also noted. Vertebral bodies demonstrate normal signal intensity on all sequences. No acute fracture is identified. Degenerative changes noted about the craniocervical junction. The visualized portions of the skull base and the posterior fossa are normal. Abnormal signal enhancement is present within the dorsal spinal cervical spinal cord at the level of C2, C3 (series [id number] since images 14, 18, 19). Mild multilevel degenerative disc disease. There are no annular fissures identified. No soft tissue abnormality is identified. Normal signal voids are present in the vertebral arteries. Multilevel degenerative changes noted throughout the cervical spine without to moderate canal stenosis at C5-C6 and severe left neural foraminal stenosis at that level. THORACIC SPINE: New Spine T2 Lesions: 0 Enhancing Spine Lesions: 0 The alignment of the thoracic spine is normal. Vertebral bodies demonstrate normal signal intensity on all sequences. There are no compression fractures. The spinal cord demonstrates normal signal intensity on all sequences. Mild multilevel degenerative disc disease. Limited views of the chest and abdomen show no soft tissue abnormality. The aorta is normal. Procedure Note Yogesh Gardiner MD - 03/14/2024 EXAMINATION: 1. Magnetic resonance imaging (MRI) of the brain and brainstem without and with contrast 2. Magnetic resonance imaging (MRI) of the cervical spine without and with contrast 3. Magnetic resonance imaging (MRI) of the thoracic spine without and with contrast HISTORY: Multiple sclerosis TECHNIQUE: Multiplanar multi-weighted MRI of the brain, brainstem was performed without and with intravenous contrast using the multiple sclerosis protocol, which includes high resolution 3D T1-weighted, FLAIR, and T2*-weighted gradient echo images. Multiplanar multi-weighted MRI of the cervical spine was performed without and with intravenous contrast using the standard protocol. Multiplanar multi-weighted MRI of the thoracic was performed without and with intravenous contrast using the standard protocol. Scanner: [employer] Strength: 3T Contrast information: 14 mL Gadoterate Meglumine The post-contrast scan was performed approximately 5 minutes after IV contrast administration. COMPARISON: 05/25/2018, FINDINGS: BRAIN: There are multiple foci of hyperintensity on FLAIR and T2-weighted images within the white matter compatible with demyelinating plaques of multiple sclerosis. When compared to examination 05/25/2018, while assessment is limited by lack of transaxial FLAIR sequence on the comparison study there appears to be increasing conspicuity and number of T2/FLAIR hyperintensities noted throughout the brain. This includes periventricular, callosal, cortical or juxtacortical, and brainstem lesions. New Brain T2 Lesions: Greater than 15 T1 Hypointense Black Holes : Greater than 15 Enhancing Brain Lesions: 0 T2/FLAIR [place] of Disease: Moderate, between 10 and 30 typical lesions Parenchymal Volume Loss: None Central Vein Sign: 6 or more CVS+ lesions, reference lesions including series [id number] images 108, 110, 102 The visualized portions of the optic nerves are normal. The scalp and calvarium are normal. The superior sagittal sinus demonstrates normal venous flow. The corpus callosum is normal in shape and signal intensity. The posterior fossa is unremarkable. The pituitary and sella are normal. The brainstem and craniocervical junction are unremarkable. Diffusion weighted images reveal no hyperintensities to suggest acute cerebral infarction. The susceptibility weighted sequences reveal no evidence of acute or chronic hemorrhage. The ventricles are normal in size and position without evidence of hydrocephalus. The paranasal sinuses are normal. The visualized portions of the mastoids are unremarkable. The orbits appear normal. Normal flow voids are demonstrated in the carotid arteries and basilar artery. CERVICAL SPINE: New Spine T2 Lesions: 2 (series [id number] images 19, 18) Enhancing Spine Lesions: 0 Multiple degenerative changes noted throughout cervical spine including stepwise retrolisthesis of C5-C7 and focal cervical kyphosis centered at C7. Multilevel degenerative disc disease is also noted. Vertebral bodies demonstrate normal signal intensity on all sequences. No acute fracture is identified. Degenerative changes noted about the craniocervical junction. The visualized portions of the skull base and the posterior fossa are normal. Abnormal signal enhancement is present within the dorsal spinal cervical spinal cord at the level of C2, C3 (series [id number] since images 14, 18, 19). Mild multilevel degenerative disc disease. There are no annular fissures identified. No soft tissue abnormality is identified. Normal signal voids are present in the vertebral arteries. Multilevel degenerative changes noted throughout the cervical spine without to moderate canal stenosis at C5-C6 and severe left neural foraminal stenosis at that level. THORACIC SPINE: New Spine T2 Lesions: 0 Enhancing Spine Lesions: 0 The alignment of the thoracic spine is normal. Vertebral bodies demonstrate normal signal intensity on all sequences. There are no compression fractures. The spinal cord demonstrates normal signal intensity on all sequences. Mild multilevel degenerative disc disease. Limited views of the chest and abdomen show no soft tissue abnormality. The aorta is normal. IMPRESSION: 1. Overall increase in number of intracranial T2 hyperintense lesions when compared to examination from 2019. Many of these lesions exhibit central vein sinuses read in detail above. No suspicious enhancing lesions in the brain. 2. Multiple T2 hyperintensities within the cervical spinal cord at C2 and C3 compatible with demyelinating spinal lesions. No suspicious enhancing lesion in the spinal cord. 3. Degenerative changes in the cervical spine without to moderate canal stenosis at C5-C6. 4. No significant degenerative changes in the thoracic spine. Dictated by: Steve Chappell MD The radiology attending physician has personally reviewed this study, and had reviewed and/or edited this written report and agrees with it. Electronically signed by: Yogesh Gardiner MD [facility] Wilfrid SAVAGE IM MRI PROCEDURES Final Result * Screening Mammogram 2D Bilateral (04/27/2013 8:03 AM ESTATE TAX EXAMINER) Anatomical Region Laterality Modality Breast Bilateral Mammography 04/27/2013 8:03 AM ESTATE TAX EXAMINER Impressions 04/27/2013 9:13 AM ESTATE TAX EXAMINER ?? 1. ??A left MLO view asymmetry requires additional imaging. The patient will be contacted at this time to arrange for additional views. 2. ??No mammographic evidence of malignancy in the right breast. ??Recommend routine screening mammography in one year. ASSESSMENT: ??BIRADS: 0 - Incomplete assessment THIS IS AN ELECTRONICALLY VERIFIED REPORT 04/27/2013 9:09 AM: ??Suad Larios M.D. Suad Larios M.D. KL:kamaljit 09:09 AM 09:09 AM [facility] [EOD] Narrative 04/27/2013 9:13 AM ESTATE TAX EXAMINER EXAMINATION: ??BILATERAL SCREENING MAMMOGRAPHY HISTORY: ??Baseline mammogram. ??No significant family history of breast cancer. COMPARISON: ??None. TECHNIQUE: ??Bilateral digital full field of view mammography was performed, with the aid of computer aided detection (CAD). FINDINGS: ??The breasts are composed of heterogeneously dense tissue, which may limit the sensitivity of mammography. ??No significant mass or other findings are seen in the right breast. A left MLO view asymmetry is seen at the level of the nipple at a posterior depth. ??Additional imaging is recommended. Procedure Note Provider, MD Ifeoma - 09/24/2020 EXAMINATION: BILATERAL SCREENING MAMMOGRAPHY HISTORY: Baseline mammogram. No significant family history of breastcancer. COMPARISON: None. TECHNIQUE: Bilateral digital full field of view mammography wasperformed, with the aid of computer aided detection (CAD). FINDINGS: The breasts are composed of heterogeneously dense tissue, whichmay limit the sensitivity of mammography. No significant mass or otherfindings are seen in the right breast. A left MLO view asymmetry is seen at the level of the nipple at aposterior depth. Additional imaging is recommended. IMPRESSION: 1. A left MLO view asymmetry requires additional imaging. The patientwill be contacted at this time to arrange for additional views. 2. No mammographic evidence of malignancy in the right breast. Recommend routine screening mammography in one year. ASSESSMENT: BIRADS: 0 - Incomplete assessment THIS IS AN ELECTRONICALLY VERIFIED REPORT 04/27/2013 9:09 AM: Suad Larios M.D. Suad Larios M.D. KL:kamaljit 09:09 AM 09:09 AM [facility] [EOD] Tez Portillo MD IMG MAMMO PROCEDURES Final Result from Last 3 Months or Most Recently Relevant to Health Maintenance Insurance [employer] O[employer] Care Teams Engineer Soils Relationship Specialty Start Date End Date Delroy Miller MD PCP - General Internal Medicine 08/02/23
--- OUTSIDE RECORDS SUMMARY | 2024-06-05 00:43 | XMS_ITS | Referral Summary ---
Author Organization [facility] Address [address] [place] [address] Care Team Providers Care Manager Java Name Role Phone Delroy Miller MD Primary Care Provider [phone] Encounters Date Type Department Care Team Description 04/03/2024 Documentation [facility] Multiple Sclerosis [address] [place] [phone] Diana Davis, RN 04/03/2024 Orders Only [facility] Multiple Sclerosis [address] [place] [phone] Diana Davis, RN Multiple sclerosis (HCC) (Primary Dx) 03/14/2024 9:45 PM DECORATOR STORE - 03/14/2024 11:59 PM DECORATOR STORE Hospital Encounter [facility] [address] [place] [address] Discharge Disposition: Discharge to home or self care 03/14/2024 9:44 PM DECORATOR STORE - 03/14/2024 11:59 PM DECORATOR STORE Hospital Encounter [facility]) [facility] [place] [address] Discharge Disposition: Discharge to home or self care 03/14/2024 8:52 AM DECORATOR STORE - 03/14/2024 11:59 PM DECORATOR STORE Hospital Encounter [facility] Radiology [address] [place] [address] Merrick Yuen MD Multiple sclerosis (HCC) Discharge Disposition: Discharge to home or self care 03/14/2024 8:51 AM DECORATOR STORE - 03/14/2024 11:59 PM DECORATOR STORE Hospital Encounter [facility] Radiology [address] [place] [address] Merrick Yuen MD Multiple sclerosis ([facility]) Discharge Disposition: Discharge to home or self care 03/14/2024 1:30 PM DECORATOR STORE Office Visit [facility] Multiple Sclerosis [address] [place] [phone] Merrick Yuen MD Multiple sclerosis ([facility]) (Primary Dx) from Last 3 Months Allergies Active Allergy Reactions Criticality Noted Date Comments Penicillins Hives Medium 04/13/2013 Hives Medications amLODIPine (NORVASC) 5 mg tablet 04/09/2022 Active aspirin 81 mg enteric coated tablet Take 1 tablet (81 mg total) by mouth daily Active multivitamin tabletIndication s:Vitamin Deficiency Prevention Take 1 tablet by mouth Active calcium carbonate-vit D3-min 600 mg calcium- 200 unit tablet Take by mouth Active xxardkdo-rzgt-jg llag-hyalur ac 579-637-38-2 mg capsule Take by mouth Active FLUoxetine 10 mg tablet/capsule Take 1 tablet/caps ule (10 mg total) by mouth daily 90 tablet/capsul e 1 12/21/2023 Active Active Problems No known active problems Social History Tobacco Use Types Packs/Day Years Used Date Smoking Tobacco: Former Cigarettes S tarted: 12/08/2012 Tobacco Cessation:Counseling Given: Not Answered Comments Unknown Sex and Gender Information Value Date Recorded Sex Assigned at Not on file Legal Sex Female 3:13 AM DECORATOR STORE Gender Identity Female 03/10/2024 5:43 AM CDT Sexual Orientation Straight 03/10/2024 5: 43 AM CDT Last Filed Vital Signs Vital Sign Reading Time Taken Comments Blood Pressure 112/80 03/14/2024 12:51 PM DECORATOR STORE Pulse 103 03/14/2024 12:51 PM DECORATOR STORE Temperature 36.3 ??C (97.3 ??F) 03/14/2024 12:[address] Respiratory Rate - - Oxygen Saturation 95% 04/07/2013 11:47 AM DECORATOR STORE Inhaled Oxygen Concentration - - Weight 75.8 kg (167 lb 3.2 oz) 03/14/2024 12:51 PM DECORATOR STORE Height 157.5 cm (5' 2 ) 04/07/2013 11:47 AM DECORATOR STORE Body Mass Index - - Plan of Treatment Not on file Procedures Procedure Name Priority Date/Time Associated Diagnosis Comments NEURO MR OUTSIDE REFERENCE Routine 03/14/2024 9:45 PM DECORATOR STORE NEURO MR OUTSIDE REFERENCE Routine 03/14/2024 9:44 PM DECORATOR STORE MRI SPINE CERVICAL THORACIC W WO CONTRAST Schedule Routine, Read Routine (OP Routine) 03/14/2024 11:58 AM DECORATOR STORE Multiple sclerosis (HCC) MRI MS BRAIN 3T PROTOCOL W WO CONTRAST Schedule Routine, Read Routine (OP Routine) 03/14/2024 11:58 AM DECORATOR STORE Multiple sclerosis (HCC) SCREENING MAMMOGRAM 2D BILATERAL Routine 04/27/2013 8:03 AM DECORATOR STORE from Last 3 Months or Most Recently Relevant to Health Maintenance Results * Neuro MR Outside Reference (03/14/2024 9:45 PM DECORATOR STORE) Impressions [facility] - 03/14/2024 9:45 PM DECORATOR STORE These images are for Reference purposes only and have not been reviewed by [facility] Radiology. ??There will be no report generated by a [facility] Radiologist. Narrative RAD_PACS_[facility] - 03/14/2024 9:45 PM DECORATOR STORE EXAMINATION: ??Images For Reference Purposes Only us Merrick Yuen MD IMLev MRI PROCEDURES Final Result [facility] * Neuro MR Outside Reference (03/14/2024 9:44 PM DECORATOR STORE) Impressions [facility]_P[facility] - 03/14/2024 9:44 PM DECORATOR STORE These images are for Reference purposes only and have not been reviewed by [facility]iology. ??There will be no report generated by a [facility] Radiologist. Narrative [facility]_PACS_[facility] - 03/14/2024 9:44 PM DECORATOR STORE EXAMINATION: ??Images For Reference Purposes Only us Min Wilfrid SAVAGE IMG MRI PROCEDURES Final Result [facility] * MRI Spine Cervical and Thoracic W WO Contrast (03/14/2024 11:58 AM DECORATOR STORE) Anatomical Region Laterality Modality Spine N/A Magnetic Resonan ce 03/14/2024 1:37 PM DECORATOR STORE Impressions 03/14/2024 2:40 PM DECORATOR STORE 1. ??Overall increase in number of intracranial [...] Yogesh Gardiner MD Narrative 03/14/2024 2:40 PM DECORATOR STORE EXAMINATION: 1. Magnetic resonance imaging (MRI) of [...] intravenous contrast using the standard protocol. Scanner: DueProps Field Strength: 3T Contrast information: 14 mL [...] than 15 Enhancing Brain Lesions: 0 T2/FLAIR Alliance of Disease: Moderate, between 10 and 30 typical lesions Parenchymal Volume Loss: None Central Vein Sign: 6 or more CVS+ lesions, reference lesions including series 26178 images 108, 110, 102 The visualized portions [...] SPINE: New Spine T2 Lesions: 2 (series 89335 images 19, 18) Enhancing Spine Lesions: 0 [...] at the level of C2, C3 (series 30470 since images 14, 18, 19). Mild multilevel [...] intravenous contrast using the standard protocol. Scanner: Due[employer] Field Strength: 3T Contrast information: 14 mL [...] than 15 Enhancing Brain Lesions: 0 T2/FLAIR Alliance of Disease: Moderate, between 10 and 30 typical lesions Parenchymal Volume Loss: None Central Vein Sign: 6 or more CVS+ lesions, reference lesions including series 48863 images 108, 110, 102 The visualized portions [...] SPINE: New Spine T2 Lesions: 2 (series 38342 images 19, 18) Enhancing Spine Lesions: 0 [...] at the level of C2, C3 (series 05322 since images 14, 18, 19). Mild multilevel [...] by: Yogesh Gardiner MD Merrick Yuen MD IM MRI PROCEDURES Final Result * MRI MS Brain 3T Protocol W WO Contrast (03/14/2024 11:58 AM DECORATOR STORE) Anatomical Region Laterality Modality Head and Neck N/A Magnetic Resonan ce 03/14/2024 1:37 PM DECORATOR STORE Impressions 03/14/2024 2:40 PM DECORATOR STORE 1. ??Overall increase in number of intracranial [...] Yogesh Gardiner MD Narrative 03/14/2024 2:40 PM DECORATOR STORE EXAMINATION: 1. Magnetic resonance imaging (MRI) of [...] intravenous contrast using the standard protocol. Scanner: [place] Field Strength: 3T Contrast information: 14 mL [...] than 15 Enhancing Brain Lesions: 0 T2/FLAIR Alliance of Disease: Moderate, between 10 and 30 typical lesions Parenchymal Volume Loss: None Central Vein Sign: 6 or more CVS+ lesions, reference lesions including series 67223 images 108, 110, 102 The visualized portions [...] SPINE: New Spine T2 Lesions: 2 (series 45899 images 19, 18) Enhancing Spine Lesions: 0 [...] at the level of C2, C3 (series 07436 since images 14, 18, 19). Mild multilevel [...] intravenous contrast using the standard protocol. Scanner: [employer] Field Strength: 3T Contrast information: 14 mL [...] than 15 Enhancing Brain Lesions: 0 T2/FLAIR Alliance of Disease: Moderate, between 10 and 30 typical lesions Parenchymal Volume Loss: None Central Vein Sign: 6 or more CVS+ lesions, reference lesions including series 66738 images 108, 110, 102 The visualized portions [...] SPINE: New Spine T2 Lesions: 2 (series 50147 images 19, 18) Enhancing Spine Lesions: 0 [...] at the level of C2, C3 (series 25458 since images 14, 18, 19). Mild multilevel [...] MD IMG MRI PROCEDURES Final Result * Screening Mammogram 2D Bilateral (04/27/2013 8:03 AM DECORATOR STORE) Anatomical Region Laterality Modality Breast Bilateral Mammography 04/27/2013 8:03 AM DECORATOR STORE Impressions 04/27/2013 9:13 AM DECORATOR STORE ?? 1. ??A left MLO view asymmetry [...] Larios M.D. KL:kamaljit 09:09 AM 09:09 AM [facility] [EOD] Narrative 04/27/2013 9:13 AM DECORATOR STORE EXAMINATION: ??BILATERAL SCREENING MAMMOGRAPHY HISTORY: ??Baseline mammogram. [...] Larios M.D. KL:kamaljit 09:09 AM 09:09 AM [facility] [EOD] Tez Portillo MD IMG MAMMO PROCEDURES Final Result from Last 3 Months or Most Recently Relevant to Health Maintenance Insurance [employer] Care Teams Manager Java Relationship Specialty Start Date End Date Delroy Miller MD PCP - General Internal Medicine 08/02/23
--- OUTSIDE RECORDS SUMMARY | 2024-06-05 00:43 | XMS_ITS ---
Author Organization [facility] Billing Info Address [address] [place] [address] Care Team Providers Care Location Worker Name Role Phone ROSA ELENA TEJADA Primary Care Provider [phone] YOUNG LAMAR Unavailable [phone] SIVAN STEELE Unavailable [phone] REASON FOR VISIT Rx REFILL Medications Medication SIG (Take, Route, Frequency, Duration) Notes Start Date End Date Status Amlodipine Besylate 5 MG 1 tablet Orally Once a day for 90 days Active Encounters Encounter Location Date Provider Diagnosis [id number] [facility] [address] [phone] 04/15/2023 SIVAN STEELE Plan Of Treatment Medication Medication Name Sig Start Date Stop Date Notes Amlodipine Besylate 5 MG 1 tablet Orally Once a day for 90 days Progress Notes * Hammad COTAaDOB:1970 ( 52 yo F)Acc No.[id number]:04/15/2023 Patient:?Radha Cotanarciso :1970???Age:52 Y???Sex:Female Address:[address], [address] * Refills? Refill Amlodipine Besylate Tablet, 5 MG, Orally, 90 Tablet, 1 tablet, Once a day, 90 days, Refills=0 * true * Date:? Generated for Printi ng/Faxing/eTransmitting on:?06/05/2024 01:43 AM EST
--- OUTSIDE RECORDS SUMMARY | 2024-06-05 00:43 | XMS_ITS | Patient Health Record ---
Author Organization James Rae MD [facility] Address [address] [facility] [address] [place], [place] [address] Care Team Providers Care Narcotics Investigator Name Role Phone Molly Ly Primary Care Provider Vicki Enriquez Unavailable [phone] Allergies Allergen (clinical drug ingredient) Drug/Non Drug Allergy documented on EMR Reaction Allergy Type Onset Date Status penicillamine Penicillamine Unknown Drug Allergy Active Reason For Referral No Information Medications Medication SIG (Take, Route, Fr equency, Duration) Notes Start Date End Date Status Tecfidera 240 MG 1 capsule Orally Twi ce a day for 90 days 02/19/2014 Active FLUoxetine HCl 20 MG 1.5 tablets in the morning Orally Once a day 05/13/2015 Active [facility] Vitamin D3 25 MCG 1 tablet Orally On ce a day for 30 day(s) 06/26/2020 Active Multivitamin Adult - as directed Orally Active Immunizations Vaccine Route Administration Date Status Comme nts Influenza Unknown 05/13/2015 Refused Influenza Unknown 12/23/2016 Pending Influenza Unknown 06/09/2018 Pending Influenza Unknown 12/07/2018 Pending Influenza Unknown 05/22/2020 Pending Influenza Unknown 06/26/2020 Pending Pneumococcal Unknown 12/23/2016 Pending Pneumococcal Unknown 12/23/2017 Pending Social History Tobacco Use: Social History Observation Description Date Details (start date - stop date) Former Smoker NA - NA Tobacco Use/Smoking Question Answer Notes Are you a former smoker Alcohol Screen Question Answer Notes Did you have a drink contain ing alcohol in the past year? Yes How often did you have a dri nk containing alcohol in the past year? Monthly or less (1 point) How many drinks did you have on a typical day when you were drinking in the past year? 1 or 2 drinks (0 point) How often did you have 6 or more drinks on one occasion in the past year? Never (0 point) Points 1 Interpretation Negative Tobacco use other than smoking: Question Answer Notes Are you an other tobacco user? No Depression Question Answer Notes Feeling down, depressed, or hopeless No Little interest or pleasure in doing things No Section Notes: Relocated from [place]. 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 Relocated from [place]. Adela band has leukemia that is in remission. Relocated from [place]. Hus band has leukemia that is in remission. Relocated from [place]. Hus band has leukemia that is in remission. Relocated from [place]. Hus band has leukemia that is in remission. Relocated from [place]. Hus band has leukemia that is in remission. Relocated from [place]. Hus band has leukemia that is in remission. Relocated from [place]. Hus band has leukemia that is in remission. Relocated from [place]. Adela band has leukemia that is in remission. Relocated from [place]. 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 Relocated from [place]. 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 Relocated from [place]. 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 Relocated from [place]. 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 Problems Problem Type SNOMED Code ICD Code Onset Dates Problem Status W/U Status Risk Notes Problem 56992981 Vitamin D deficiency (E55.9) Active confirmed Problem Adjustment disorder with mixed emotional features (57939044) Adjustment disorder with mixed anxiety and depressed mood (F43.23) Active confirmed She is having increased anxiety -- will increase prozac to 30mg QD. Problem Multiple sclerosis (44152349) Multiple sclerosis (G35) Active confirmed Patient who was diagnosed with MS in 09/2013. She was started on Tecfidera in 02/2014 and has done well. MRI brain 11/2015, 05/2018, and 06/2020 were stable. She initially was having some SE's with tecfidera but is tolerating it now w/o problems. Recent labs were unremarkable except for a low Vit D which we will supplement. Problem Joint pain (00356990) Pain in unspecified joint (M25.50) Active confirmed She has intermittent joint pain. She was diagnosed with lupus in the past. She can use naproxen PRN. Problem Frequency of micturition (414316971) Frequency of micturition (R35.0) Active confirmed Check UA -- call for results. Problem Fatigue (42957317) Fatigue (R53.83) Active confirmed Not as big of a problem as it has been in the past. Plan Of Treatment Pending Test Test Name Order Date Folate (Folic Acid), Serum (D64.9) icd10 05/13/2015 Folate (Folic Acid), Serum (D64.9) icd10 12/23/2016 Folate (Folic Acid), Serum (D64.9) icd10 05/22/2020 Creatinine Clearance 11/07/2015 CBC With Differential/Platelet (D64.9) i cd10 05/13/2015 Vitamin D, 25-Hydroxy (E55.9) icd10 08/2015 Vitamin D, 25-Hydroxy (E55.9) icd10 02/07 Vitamin D, 25-Hydroxy (E55.9) icd10 12/08 Vitamin D, 25-Hydroxy (E55.9) icd10 05/10 Vitamin D, 25-Hydroxy (E55.9) icd10 06/10 TSH+Free T4 (E03.9) icd10 05/22/2020 TSH+Free T4 (E03.9) icd10 06/09/2018 TSH+Free T4 (E03.9) icd10 12/23/2016 TSH+Free T4 (E03.9) icd10 05/13/2015 TSH+Free T4 (E03.9) icd10 02/19/2014 TSH+Free T4 (E03.9) icd10 06/11/2014 Lipid Panel (E78.2) icd10 06/09/2018 Hepatitis Panel General (OCREVUS) CPT: 8 6704, 19917, 38152, 44755, 39460 05/22/2020 Hepatic Function Panel (7) 06/09/2018 CBC (D64.9) icd10 12/23/2017 CBC (D64.9) icd10 09/03/2014 Liver Function Test (LFT) (Z79.899) icd1 0 12/23/2017 MRI : Brain with [place] [address]) 11/05/2015 COMPREHENSIVE METABOLIC PANEL (Z79.899) icd10 06/26/2020 COMPREHENSIVE METABOLIC PANEL (Z79.899) icd10 05/13/2015 COMPREHENSIVE METABOLIC PANEL (Z79.899) icd10 11/13/2015 CBC (INCLUDES DIFF/PLT) (D64.9) icd10 CBC (INCLUDES DIFF/PLT) (D64.9) icd10 CBC (INCLUDES DIFF/PLT) (D64.9) icd10 CBC (INCLUDES DIFF/PLT) (D64.9) icd10 VITAMIN B12 (E53.8) icd10 06/11/2014 VITAMIN B12 (E53.8) icd10 02/19/2014 VITAMIN B12 (E53.8) icd10 05/13/2015 CBC (INCLUDES DIFF/PLT) (D64.9) icd10 CBC (INCLUDES DIFF/PLT) (D64.9) icd10 urine analysis 05/13/2016 Urine Culture, Routine 05/13/2016 QuantiFERON TB Gold 05/22/2020 Future Test Test Name Order Date MRI : [place] [address]) 06/11/2014 MRI : Cervical with and without Contrast (CPT 87204) 06/11/2014 Insurance Providers Payer Name Payer Address Payer Phone Subscriber Number Group Number Insured Name Patient Relationship to Insured Coverage Start Date Coverage End Date [facility] PPO [address] [address] [place] [id number] Raine Cota Self - patient is the insured Medical (General) History Medical History History ICD Code multiple sclerosis Lupus Surgical History Surgery Date(Month/Year) section, twice cervical ablation
--- OUTSIDE RECORDS SUMMARY | 2024-06-05 00:43 | XMS_ITS | CONTINUITY OF CARE DOCUMENT ---
Author Name paola guevara Address Unknown Organization [facility] Office Address [address] [place] [address] [address] [place] [address] Phone [phone] Care Team Providers Care Rubber Belt Splicer Name Role Phone Bam Hurtado MD Unavailable Bam Hurtado MD Unavailable [phone] INSURANCE PROVIDERS Payer name Policy type / Coverage type [place] red libertarian ID [facility] Blue [facility] [id number]
--- OUTSIDE RECORDS SUMMARY | 2024-06-05 00:44 | XMS_ITS ---
Author Organization [facility] Billing Info Address [address] [place] [address] Care Team Providers Care Waiter/Waitress Cafeteria Name Role Phone ROSA ELENA TEJADA Primary Care Provider [phone] YOUNG LAMAR [facility] REASON FOR VISIT Rx REFILL Medications Medication SIG (Take, Route, Frequency, Duration) Notes Start Date End Date Status Amlodipine Besylate 5 MG 1 tablet Orally Once a day for 90 days Active Encounters Encounter Location Date Provider Diagnosis [id number] [facility] [address] [phone] 04/15/2023 YOUNG LAMAR Plan Of Treatment Medication Medication Name Sig Start Date Stop Date Notes Amlodipine Besylate 5 MG 1 tablet Orally Once a day for 90 days Progress Notes * Hammad COTAaDOB:1970 ( 52 yo F)Acc No.[id number]:04/15/2023 Patient:?BeataRadhanarciso :1970???Age:52 Y???Sex:Female Address:[address], [address] * Refills? Refill Amlodipine Besylate Tablet, 5 MG, Orally, 90 Tablet, 1 tablet, Once a day, 90 days, Refills=3 * true * Date:? Generated for Printi teresa/Fahog/eTransmitting on:?06/05/2024 01:43 AM EST
--- OUTSIDE RECORDS SUMMARY | 2024-06-05 00:44 | XMS_ITS | Patient Health Record ---
Author Organization [facility] Physician Laurie es Billing Info Address [address] [place] [address] [place] [address] Care Team Providers Care Human Resources Professional Name Role Phone ROSA ELENA TEJADA Primary Care Provider [phone] YOUNG LAMAR [phone] Allergies Allergen (clinical drug ingredient) Drug/Non Drug Allergy documented on EMR Reaction Allergy Type Onset Date Status lisinopril Lisinopril rash/hives Drug Allergy Acti ve Penicillin Unknown Drug Allergy Active Reason For Referral No Information Medications Medication SIG (Take, Route, Frequency, Duration) Notes Start Date End Date Status Vitamin B12 1000 MCG 1 tablet Orally Once a day Active Multivitamin Adult - as directed Orally Daily Active Fluoxetine HCl 20 MG 1 capsule Orally On ce a day for 30 day(s) Active Amlodipine Besylate 5 MG 1 tablet Orally Once a day for 90 days Active Immunizations Vaccine Route Administration Date Status Comme nts zFLU 4V (FLUARIX QUAD), 6 MO +, NO PRES - ALL PAYORS Unknown 03/02/2022 Administered Social History Tobacco Use: Social History Observation Description Date Details (start date - stop date) Former Smoker NA - NA Tobacco Status: Question Answer Notes Patient is a former smoker smoked 15 years, , Smokes 1 PPD Problems Problem Type SNOMED Code ICD Code Onset Dates Problem Status W/U Status Risk Notes Problem 67588468 MS (multiple sclerosis) (G35) Active confirmed Problem 929112238 Perimenopausal vasomotor symptoms (N95.1) Active confirmed Problem 16554281 Elevated blood s ugar (R73.9) Active confirmed Problem 45560477 Hypercholesterem ia (E78.00) Active confirmed Plan Of Treatment Future Test Test Name Order Date HIDA SCAN (12387) 04/19/2020 Insurance Providers Payer Name Payer Address Payer Phone Subscriber Number Group Number Insured Name Patient Relationship to Insured Coverage Start Date Coverage End Date [employer] CHOICE POS II [address] [place] [id number] Raine Cota Self - patient is the insured 2 3 Medical (General) History Medical History History ICD Code Multiple sclerosis 05/31 mammo 07/30 mammo 12/29 pap 12/29 cologuard neg Surgical History Surgery Date(Month/Year) ABLATION 04/2013 C section [id number]
--- NOTE | 2024-06-05 06:26 | WPDHPUPDATE1 ---
History and Physical Update Update Date/Time: 06/05/24 06:26 History and Physical has been reviewed, including an updated exam of the patient. There are NO changes in the patient's condition. Risks, benefits, and alternatives have been discussed and questions answered. Patient agrees to proceed with procedure.
--- NOTE | 2024-06-05 07:37 | WPDHPUPDATE1 ---
History and Physical Update Update Date/Time: 06/05/24 07:37 History and Physical has been reviewed, including an updated exam of the patient. There are NO changes in the patient's condition. Risks, benefits, and alternatives have been discussed and questions answered. Patient agrees to proceed with procedure.
[2024-06-05] MEDS: LACTATED RINGERS 1,000 ML 30 ML IV CONT ×2 (10:15→14:25)
[2024-06-05] MEDS: ACETAMINOPHEN 500 MG TABLET 1000 MG PO (10:15)
[2024-06-05 10:33] LABS: BEDSIDEPREGUCG Negative (Negative)
--- NOTE | 2024-06-05 11:45 | WPDANESEPPF ---
Anes - Initial Pre Proc Eval Procedure: Operation Date: 06/05/24 12:00 Proposed Procedures p Robotic Sacrocolpopexy, Urethral Sling - Itz Angel MD s Robotic Assisted Supracervical Hysterectomy, Bilateral Salpingo Oophorectomy - Andry Coy MD Date/Time: 06/05/24 11:45 Surgeon: Itz Angel MD Pre Op Diagnosis: pelvic prolapse,stress incont Patient Data Age: 53 Gender: F Height: 1.57 m Weight: 76.8 kg Last Vital Signs Temp 97.2 F L 06/05/24 10:15 Pulse 61 06/05/24 10:15 Resp 14 06/05/24 10:15 BP 148/87 H 06/05/24 10:15 Pulse Ox 100 06/05/24 10:15 O2 Del Method Room Air 06/05/24 10:15 Allergies Allergy/AdvReac Type Severity Reaction Status Date / Time penicillin G Allergy Hives Verified 06/05/24 10:34 oxybutynin AdvReac Vomiting, Verified 06/05/24 10:34 DIARRHEA Home Medications ?Medication ?Instructions ?Recorded ?Confirmed ?Type amlodipine 5 mg tablet 5 mg PO QAM 04/14/24 06/05/24 History calcium carbonate 600 mg PO DAILY 04/14/24 06/05/24 History fluoxetine 10 mg capsule 10 mg PO DAILY 04/14/24 06/05/24 History lysine 1,000 mg tablet 4,500 mg PO DAILY 04/14/24 06/05/24 History pantoprazole 40 mg tablet,delayed 40 mg PO DAILY PRN REFLUX 04/14/24 04/14/24 History release Laboratory Tests 06/05/24 06/05/24 09:59 10:15 POC Urine HCG, Qual Negative (Negative) Blood Type O Positive Antibody Screen Negative Patient hx anesthesia problems: post op nausea/vomiting Family hx anesthesia problems: none Results Review: All pre-operative results and documents have been reviewed as part of the pre-operative evaluation. [facility] Social History Social History Smoking packs per day: 1 Smoking cigarettes per day: 20.0 Years smoked: 20 Smoking pack-years: 20.00 Smoking status: Current every day smoker Tobacco type: cigarettes and e-cigarettes/vaping Additional smoking assessment comments: VAPES ON AND OFF ALL DAY, QUIT CIGARETTES IN 2010 Alcohol intake: current Drinks per week: 4 Living arrangements: with family Additional living arrangements comments: HUSB Spiritual care concerns: No Anes - Eval Final PreProcedure Day of Procedure 06/05/24 11:45 Patient weight: obese Heart: regular rate and rhythm Lungs: clear to auscultation Airway: Mallampati scale class II Neurological: alert and oriented Last oral intake: >/= 8 hours ASA classification: III Emergent: no Anesthetic plan: proceed Anesthesia type and monitoring: general ETT and standard monitoring Results Review: All pre-operative results and documents have been reviewed as part of the pre-operative evaluation. Informed Consent: The patient's anesthetic plan and its attendant risks and benefits were discussed with the patient/family/POA. Questions were solicited and answers provided to the satisfaction of the patient/family/POA.
[2024-06-05] MEDS: SCOPOLAMINE 1 MG PATCH 1 PATCH TRANSDERM (11:49)
[2024-06-05] MEDS: ceFAZolin 2 GM/D5W 50 ML 2 GM/50 ML BAG IVPB (11:53)
[2024-06-05] MEDS: metroNIDAZOLE 500 MG/ISO 100ML 500 MG/100 ML BAG 100 MG IVPB ×2 (11:53→21:40)
[2024-06-05] MEDS: BUPIVACAINE/EPINEPHRINE 0.5% 30 ML VIAL 60 ML INFILTRATE (12:31)
--- NOTE | 2024-06-05 12:41 | W.PM.PROC2 ---
Procedure Note - Detailed Date of Procedure 06/05/24 Pre-op Diagnosis pelvic prolapse,stress incont Post-op Diagnosis Same Procedure Performed Robotic supracervical hysterectomy and bilateral salpingo-oophorectomy l Surgeon Andry Coy MD Anesthesia General Indications 53-year-old female with uterine prolapse Findings Uterine prolapse normal-appearing ovaries and tubes Description of Procedure The patient was prepped draped in sterile fashion placed in dorsal lithotomy position. Under excellent general trach anesthesia speculum placed in posterior fornix vagina. Anterior lip of the cervix grasped with single-tooth tenaculum. Jones's cannula inserted the cervix attached to the single-tooth to be used later for uterine manipulation. A 16 [place] catheter was placed in the bladder and the bladder drained of clear urine. The weighted speculum was removed the gloves were changed. Attention was turned to the correctional counselor/case manager. Prior to this Dr. Angel had docking the robot please see his operative report for full details. The left round ligament grasped, burned, cut. Anteriorly a bladder flap was formed by sharply dissecting the peritoneum flexing this caudally away from the cervix uterus the opposite round ligament which was clamped, burned, cut. Next the left infundibulopelvic structure was skeletonized to remove the left ovary and tube. Clamped, burned, cut and brought to the level of previously cut. In similar fashion remove the right ovary and tube the infundibulopelvic structure was skeletonized clamping burning cutting and bringing this to level of previously cut round ligament. Next the cardinal broad ligaments on the left were serially skeletonized clamping burning cutting until the large tortuous vessels could be seen on the left these were individually clamped, burned, cut. Next the right cardinal broad ligaments were skeletonized clamping burning cutting and hugging the cervix uterus until the large uterine vessels could be seen on the right these were individually clamped, burned, cut. The blanching was noted and the uterus was bivalved down to the point of the supracervical area. A supracervical incision was made and the 2 portions of uterus with tubes and ovaries were placed in an Endo-Catch blood loss at this point was 5cc. All sponge, needle, instrument counts were correct. Dr. Angel took over from here there were no complications Estimated Blood Loss 5 Drains No Packing No Pathology Yes Complications No immediate complications Condition Stable Disposition No change
--- NOTE | 2024-06-05 12:44 | P.DS_ITS ---
DS: Admitting Diagnosis Discharge Date 06/06/2024 Admitting Diagnosis Uterine prolapse and stress urinary incontinence DS: Discharge Diagnosis Discharge Diagnosis (1) VIJI (stress urinary incontinence, female): Code(s): N39.3 - Stress incontinence (female) (male) Status: Acute (2) Uterine prolapse: Code(s): N81.4 - Uterovaginal prolapse, unspecified Status: Acute DS: Summary Hospital Course Reason for hospitalization: Patient was admitted for supracervical hysterectomy and bilateral salpingo- oophorectomy as well as a sling and sacral colpopexy. Hospital Course: Patient's hospital course unremarkable. She remained afebrile. She was up, voiding without difficulty, eating regular diet, ambulating, and generally without complaints. Time Spent with Patient Time attestation: Total time spent providing and/or coordinating discharge services: Exam Const: General: cooperative, healthy appearing and comfortable Nutritional Appearance: average body habitus Orientation/consciousness: oriented to person, oriented to place and oriented to time HENMT: Head: normal to inspection Resp: Effort & Inspection: normal respiratory effort Cardio: Rate: regular rate Rhythm: regular rhythm Heart sounds: S1 normal heart sound present and S2 normal heart sound present GI: Inspection: normal to inspection and incision (Wounds are clean dry and intact) DS: Data Data Completed and Pending Labs on day of discharge: Labs from last 24 hours 06/05/24 06/05/24 10:15 09:59 POC Urine HCG, Qual Negative Blood Type O Positive Antibody Screen Negative Discharge Plan Discharge Patient Disposition: Home, Self-Care Discharge Instructions: Remove the Scopolamine patch that was placed behind your ear in 72 hours or less. Wash your hands after touching. Patient Language: Italian Stand Alone Forms: General Discharge Instructions Discharge Medications: No Action amlodipine 5 mg tablet 5 mg PO QAM pantoprazole 40 mg Tablet,Delayed Release (Dr/Ec) 40 mg PO DAILY PRN (Reason: REFLUX) fluoxetine 10 mg capsule 10 mg PO DAILY Patient Comments: PT HASN'T STARTED THIS MED YET lysine 1,000 mg Tablet 4,500 mg PO DAILY calcium carbonate [Caltrate 600] 600 mg calcium (1,500 mg) Tablet 600 mg PO DAILY
[2024-06-05] MEDS: KETOROLAC 15 MG/ML VIAL (*BKC) IV PUSH ×3 (13:53→21:45)
--- NOTE | 2024-06-05 14:17 | P.OP_ITS ---
Procedure Note - Detailed Date of Procedure 06/05/24 Pre-op Diagnosis pelvic prolapse,stress incont Post-op Diagnosis Same Procedure Performed Robotic assisted laparoscopic sacral colpopexy Urethral sling Cystoscopy Surgeon Itz Angel MD Anesthesia General Indications A woman with uterine prolapse as well as stress incontinence. She desires surgical correction. She is here for the above. She understands risks of bleeding, infection, diskitis, damage to surrounding organs, bowel injury, bowel obstruction, mesh related complications including exposure and extrusion, postoperative voiding dysfunction including incontinence and retention, need for ancillary procedures, dyspareunia, recurrence of prolapse, and other perioperative intraoperative postoperative complications. She agrees to proceed. Findings See below Description of Procedure She was correctly identified. Informed consent obtained. She from the operating room. She was given general anesthesia. She was given appropriate perioperative antibiotics. She was placed a low lithotomy position. Pressure points were padded. A time-out performed. I marked out the skin 3 fingerbreadths cephalad to the umbilicus. I anesthetized the skin. I incised the skin. I dissected down to the fascia. I grasped the fascia with Cosmo clamps. I entered the fascia sharply in a Schaffer type technique. I placed sutures for later fascial closure. I placed a midline trocar. I examined the abdomen. There is no sign of any injury. Under direct vision I placed 2 additional trocars in the right upper quadrant and 2 additional trocars the left upper quadrant. She was placed in steep Trendelenburg. The robot was docked. Her assembly stock supervisor completed their portion of the procedure. Please see that operative report for details. I then sat at the console. The Sizer in the vagina created plane on the anterior and posterior vaginal wall. I took great care not to injure the vagina, bladder, or rectum. I introduced the mesh into the abdomen. I sewed the anterior leaflet of mesh on the anterior vaginal wall. I sewed the posterior leaflet of mesh on the posterior vaginal wall. This was done with several sutures of 2 0 [place]. I reflected the colon laterally. I opened the posterior peritoneum over the sacral promontory. I carried this into the cul-de-sac. I freed up the edges for later retroperitonealization. I located the anterior longitudinal ligament the sacrum. I cleaned off all fatty tissues. I then tensioned my mesh appropriately. I did a vaginal exam the bedside. I assured prolapse reduction without undue tension. I then sewed the proximal leaflet of mesh onto the anterior longitudinal ligament of the sacrum with 4 sutures of 2 0 [place]. I then used a 2 0 Monocryl to completely and meticulously retroperitonealized all mesh. I allowed the colon to go back to its normal anatomic location. There is no sign of any impingement. The specimen was then removed. All ports removed. Fascia was tied down. Additional suture was used to fully close the fascia. Skin was closed with Monocryl and surgical glue. She was repositioned and prepped for urethral sling. I marked out the inner thigh incisions. I anesthetized the skin and made the incisions. I then anesthetized the anterior vaginal wall at the mid urethra. I made a 1 cm incision. I dissected out laterally taking great care not to injure the refilled vaginal wall. I passed the helical trocars. I did this 1st on the left and then on the right. This was done from the thigh incision towards the vaginal incision. Sling was connected to the trocars and brought out the thigh incision. I tensioned the sling appropriately. I cut and the plastic sheaths. I closed the incision with 2 0 Vicryl. I then performed cystoscopy. There was no tumors or surgical artifact. Both ureters were seen to excrete clear yellow urine. There is no surgical artifact in the bladder or urethra. I cut the excess sling material. Close incision with glue. She was awakened and transferred to PACU in stable condition. Implants Sacral colpopexy mesh Urethral sling Estimated Blood Loss 20 Packing No Pathology None sent Complications No immediate complications Condition Stable Disposition PACU
[2024-06-05] MEDS: fentaNYL CITRATE INJ (*CRX) 100 MCG/2 ML VIAL 25 MCG IV PUSH ×3 (14:43→15:10)
[2024-06-05] MEDS: KCL 20 MEQ/D5/0.45% SOD CHL 1,000 ML 100 ML IV CONT (16:18)
[2024-06-05] MEDS: ceFAZolin 1 GM/NS 50 ML 1 GM/50 ML BAG IVPB (20:15)
[2024-06-05] MEDS: HYDROcodone/acetaminophen (*CRX) 5-325 MG TABLET 1 TAB PO (21:45)
[2024-06-06 04:00] VITALS: BP 90/70; PULSE 73; RESP 14; TEMP 37.2; O2SAT 98
[2024-06-06] MEDS: ceFAZolin 1 GM/NS 50 ML 1 GM/50 ML BAG IVPB (04:00)
[2024-06-06] MEDS: ACETAMINOPHEN 325 MG TABLET 650 MG PO (04:00)
--- NOTE | 2024-06-06 05:56 | P.PNOB_ITS ---
QUALITATIVE FIELD PROJECT MANAGER - A/P Assessment and plan (1) Uterine prolapse: Code(s): N81.4 - Uterovaginal prolapse, unspecified Status: Acute (2) VIJI (stress urinary incontinence, female): Code(s): N39.3 - Stress incontinence (female) (male) Status: Acute Plan home Postoperative Procedures: Procedures Operation Date: 06/05/24 12:00 Actual Procedure Side Surgeon p Robotic Sacrocolpopexy, Urethral Sling Itz Angel MD s Robotic Assisted Supracervical Hysterectomy, Bilateral Salpingo Oophorectomy Bilateral Andry Coy MD Time Spent With Patient Time: Total time spent is greater than 50% in coordination of care (as documented) at patient's floor/unit and/or counseling patient: Time with patient: less than 15 minutes QUALITATIVE FIELD PROJECT MANAGER- PN:Subj Post-Op Subjective Date/time seen: 06/06/24 05:56 Subjective: patient reports feeling better, patient has no complaints, patient desires discharge, pain is well controlled and patient is tolerating oral intake Review of Systems Review of Systems: All systems reviewed & are unremarkable except as noted in HPI and below Exam Const: General: cooperative, healthy appearing and comfortable Nutritional Appearance: average body habitus Orientation/consciousness: oriented to person, oriented to place and oriented to time Resp: Effort & Inspection: normal respiratory effort Cardio: Rate: regular rate Rhythm: regular rhythm Heart sounds: S1 normal heart sound present and S2 normal heart sound present GI: Inspection: normal to inspection and incision (all cdi) QUALITATIVE FIELD PROJECT MANAGER - PN: Obj Data Vital Signs Vital Signs: Vital Signs - 24 hr 06/05/24 10:15 06/05/24 14:25 06/05/24 14:40 Temperature 97.2 F L 98.2 F Pulse Rate 61 76 60 Respiratory Rate 14 10 L 12 Blood Pressure 148/87 H 146/83 H 143/87 H Pulse Oximetry 100 100 100 Oxygen Delivery Room Air Simple Face Mask Simple Face Mask Oxygen Flow Rate 8 8 06/05/24 14:55 06/05/24 15:10 06/05/24 15:25 Temperature Pulse Rate 63 63 67 Respiratory Rate 16 20 20 Blood Pressure 143/74 H 137/65 122/65 Pulse Oximetry 94 94 96 Oxygen Delivery Room Air Room Air Room Air Oxygen Flow Rate 06/05/24 15:40 06/05/24 15:50 06/05/24 15:50 Temperature 99.1 F Pulse Rate 75 61 Respiratory Rate 20 18 Blood Pressure 128/69 126/77 Pulse Oximetry 97 96 Oxygen Delivery Room Air Room Air Oxygen Flow Rate 06/05/24 19:21 06/06/24 04:00 Temperature 97.7 F 98.9 F Pulse Rate 90 73 Respiratory Rate 14 14 Blood Pressure 115/71 90/70 L Pulse Oximetry 100 98 Oxygen Delivery Oxygen Flow Rate Intake/Output Intake/Output: Intake & Output 06/03/24 06/04/24 06/05/24 06/06/24 23:59 23:59 23:59 23:59 Intake Total 590 Output Total 670 100 Balance -80 -100 Meds/Results Medications: Active Medications Generic Name Dose Route Start Last Admin Trade Name Freq PRN Reason Stop Dose Admin Acetaminophen 650 mg 06/05/24 15:38 06/06/24 04:00 Acetaminophen 325 Mg Tablet PO 650 mg Q4H PRN Administration Mild Pain (1-3) or Fever Hydrocodone Bitart/Acetaminophen 1 tab 06/05/24 15:38 06/05/24 21:45 Hydrocodone/Acetaminophen (*Crx) 5-325 Mg Tablet PO 1 tab Q4H PRN Administration Pain Rated 4-5 Amlodipine Besylate 5 mg 06/06/24 09:00 Amlodipine Besylate 5 Mg Tablet PO QAM [facility] Cephalexin HCl 500 mg 06/06/24 17:00 Cephalexin 500 Mg Capsule PO QID MANDY Diphenhydramine HCl 25 mg 06/05/24 15:38 Diphenhydramine Hcl Inj 50 Mg/Ml Vial IV PUSH Q6H PRN Itching Docusate Sodium 100 mg 06/06/24 09:00 Docusate Sodium 100 Mg Capsule PO DAILY [facility] Enoxaparin Sodium 30 mg 06/06/24 09:00 Enoxaparin 30 Mg/0.3 Ml Syringe SUB-Q DAILY MANDY Fluoxetine HCl 10 mg 06/06/24 09:00 Fluoxetine Hcl 10 Mg Capsule PO DAILY MANDY Potassium Chloride/Dextrose/Sod Cl 1,000 mls @ 100 mls/hr 06/05/24 15:38 06/05/24 16:18 Kcl 20 Meq/D5/0.45% Sod Chl IV CONT 100 mls/hr .Q10H MANDY Administration Cefazolin Sodium 1 gm in 50 mls @ 100 mls/hr 06/05/24 20:00 06/06/24 04:00 Ancef 1 Gm/Ns 50 Ml IVPB 06/06/24 12:29 100 mls/hr Q8H MANDY Administration Metronidazole 500 mg in 100 mls @ 100 mls/hr 06/05/24 22:00 06/05/24 21:40 Flagyl 500 Mg/Iso Soln 100 Ml IVPB 100 mls/hr Q8H MANDY Administration Ketorolac Tromethamine 15 mg 06/05/24 15:38 06/05/24 21:45 Ketorolac 15 Mg/Ml Vial (*Bkc) IV PUSH 15 mg Q8H PRN Administration Pain Rated 5 or Less Morphine Sulfate 2 mg 06/05/24 15:38 Morphine Sulfate (*Crx) 2 Mg/Ml Inj IV PUSH Q2H PRN Pain Rated 6 or Greater Ondansetron HCl 4 mg 06/05/24 15:38 Ondansetron Inj 4 Mg/2 Ml Vial IV PUSH Q6H PRN Nausea And Vomiting Pantoprazole Sodium 40 mg 06/05/24 15:38 Pantoprazole 40 Mg Tablet PO DAILY PRN Reflux Zolpidem Tartrate 5 mg 06/05/24 15:38 Zolpidem Tartrate (*Crx) 5 Mg Tablet PO HS PRN Insomnia Labs Labs: Laboratory Results - last 24 hr 06/05/24 06/05/24 09:59 10:15 POC Urine HCG, Qual Negative Blood Type O Positive Antibody Screen Negative
[2024-06-06] MEDS: metroNIDAZOLE 500 MG/ISO 100ML 500 MG/100 ML BAG 100 MG IVPB (06:00)
[2024-06-06 08:45] VITALS: BP 112/62; PULSE 60; RESP 18; TEMP 36.5; O2SAT 95
[2024-06-06] MEDS: amLODIPine BESYLATE 5 MG TABLET PO (09:04)
[2024-06-06] MEDS: DOCUSATE SODIUM 100 MG CAPSULE PO (09:05)
[2024-06-06] MEDS: FLUoxetine HCL 10 MG CAPSULE PO (09:06)
[2024-06-06] MEDS: ENOXAPARIN 30 MG/0.3 ML SYRINGE SUB-Q (09:06)
--- NOTE | 2024-06-06 12:59 | PC.NURSE ---
On 06/06/24, the license pending nurse, Thuy Adamson, provided care and completed [employer] documentation on this patient. I have reviewed the license pending nurse's documentation and agree with the findings.
== END 2024-06-06 09:40 | disposition home or self-care (01) ==
LOC: ANHSURGERY 11:50 → ANHOB2 15:44
PROVIDERS: Obstetrics & Gynecology; PCP Internal Medicine; Visit Provider Urology
PROC: (CPT 57425; principal; 2024-06-05 12:00)
PROC: 0UT94ZZ Resection of Uterus, Percutaneous Endoscopic Approach (ICD-10-PCS; CPT 57425; 2024-06-05 12:00)
DX: N39.3 Stress incontinence (female) (male) (principal); N81.4 Uterovaginal prolapse, unspecified; D25.1 Intramural leiomyoma of uterus; D25.2 Subserosal leiomyoma of uterus; N83.292 Other ovarian cyst, left side; N83.291 Other ovarian cyst, right side; N83.01 Follicular cyst of right ovary; N83.8 Other noninflammatory disorders of ovary, fallopian tube and broad ligament; N70.11 Chronic salpingitis; F17.290 Nicotine dependence, other tobacco product, uncomplicated; E66.9 Obesity, unspecified; Z68.31 Body mass index [BMI] 31.0-31.9, adult; Z90.79 Acquired absence of other genital organ(s)
CPT/HCPCS: 57425; 57288; 58542; S2900 ×2; 36415; 86850; 86900; 86901; 88307; 99199; A9270; C1771; C1781; J0690; J1100; J1171; J1650; J1836; J1885; J2250; J2405; J2704; J3010; J3480; J7030; J7120

== ENCOUNTER 2024-11-22 08:31 | Outpatient (CLI) | payer BC, SELFPAY ==
--- NOTE | ~2024-11-22 | US_ITS ---
Limited Abdominal Sonogram: Real-time sonographic imaging of the right upper quadrant was performed. Clinical History: Right upper quadrant pain Findings: The liver appears normal with no evidence of mass lesion or bile duct dilatation. Main por elder vein demonstrates normal direction of flow. The gallbladder is well distended, and appears normal with no evidence of gallstone or wall thickening. The common bile duct measures 3 mm. The visualize d pancreas, aorta, and IVC are unremarkable. Impression: No significant abnormality seen. Reviewed, dictated and finalized at location M. Impression: No significant abnormality seen.
--- OUTSIDE RECORDS SUMMARY | 2024-11-22 08:40 | XMS_ITS | Clinical Summary ---
Author Organization [facility] Address [facility] [place] [address] Care Team Providers Care Apartment Hotel Manager Name Role Phone Unavailable Primary Care [...] 11:11 AM CDT Height 165.1 cm (5' 5) 10/25/2012 11:11 AM CDT Body Mass Index [...] Screening with HPV 2002 Mammogram Screening 2012 Pneumococcal Vaccine: 50+ Ye ars (1 of 1 - PCV) 2022 Zoster Vaccines (1 of 2) 2022 COVID-19 Vaccine (2023-2 5 season) 2024 Meningococcal B Vaccine Aged Out No l onger eligible based on patient's age to complete this topic Meningococcal Vaccine Aged Out No gerardo nel eligible based on patient's age to complete this topic RSV Immunizations Under 20 Months Aged Out No longer eligible based on patient's age to complete this topic
--- OUTSIDE RECORDS SUMMARY | 2024-11-22 08:40 | XMS_ITS | Patient Health Record ---
Author Organization James Rae MD PA Address [address] [facility] [address] [place], [place] [address] Care Team Providers Care Feed Mill Operator Name Role Phone Molly Ly Primary Care Provider Kaiden quinteros MagalysVicki gurrola Unavailable [phone] Allergies Allergen (clinical drug ingredient) Drug/Non Drug Allergy documented on EMR Reaction Allergy Type Onset Date Status penicillamine Penicillamine Unknown Drug Allergy Active Reason For Referral No Information Medications Medication SIG (Take, Route, Fr equency, Duration) Notes Start Date End Date Status Tecfidera 240 MG 1 capsule Orally Twi ce a day; Duration: 90 days 02/19/2014 Active FLUoxetine HCl 20 MG 1.5 tablets in the morning Orally Once a day 05/13/2015 Active [facility] Vitamin D3 25 MCG 1 tablet Orally On ce a day; Duration: 30 day(s) 06/26/2020 Active Multivitamin Adult - as directed Orally Active Immunizations Vaccine Route Administration Date Status Comme nts Pneumococcal Unknown 12/23/2016 Pending Pneumococcal Unknown 12/23/2017 Pending Influenza Unknown 05/13/2015 Refused Influenza Unknown 12/23/2016 Pending Influenza Unknown 06/09/2018 Pending Influenza Unknown 12/07/2018 Pending Influenza Unknown 05/22/2020 Pending Influenza Unknown 06/26/2020 Pending Social History Tobacco Use: Social History [...] tobacco user? No Depression Question Answer Notes Little interest or pleasure in doing things No Feeling down, depressed, or hopeless No Section Notes: Relocated from [place]. 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 Relocated from [place]. Adela band has leukemia that is in remission. Relocated from [place]. Hus band has leukemia that is in remission. Relocated from [place]. Hus band has leukemia that is in remission. Relocated from [place]. Hus band has leukemia that is in remission. Relocated from [place]. Hus band has leukemia that is in remission. Relocated from [place]. Adela band has leukemia that is in remission. Relocated from [place]. Adela band has leukemia that is in remission. Relocated from [place]. Adela band has leukemia that is in remission. Relocated from [place]. 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 Relocated from [place]. 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 Relocated from [place]. 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 Relocated from [place]. 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 Problems Problem Type SNOMED Code ICD Code Onset Dates Problem Status W/U Status Risk Notes Problem Vitamin D deficiency (66078574) Vitamin D deficiency (E55.9) Active confirmed Problem Adjustment disorder with mixed anxiety and depressed mood (259311933) Adjustment disorder with mixed anxiety and depressed mood (F43.23) Active confirmed She is having increased anxiety -- will increase prozac to 30mg QD. Problem Multiple sclerosis (72187465) Multiple sclerosis (G35) Active confirmed Patient who [...] which we will supplement. Problem Joint pain (33392424) Pain in unspecified joint (M25.50) Active confirmed She has intermittent joint pain. She was diagnosed with lupus in the past. She can use naproxen PRN. Problem Frequency of micturition (727471714) Frequency of micturition (R35.0) Active confirmed Check UA -- call for results. Problem Fatigue (12595797) Fatigue (R53.83) Active confirmed Not as big of a problem as it has been in the past. Plan Of Treatment Pending Test Test Name Order Date Folate (Folic Acid), Serum (D64.9) icd10 12/23/2016 Folate (Folic Acid), Serum (D64.9) icd10 05/22/2020 Folate (Folic Acid), Serum (D64.9) icd10 05/13/2015 Creatinine Clearance 11/07/2015 CBC With Differential/Platelet (D64.9) i cd10 05/13/2015 Vitamin D, 25-Hydroxy (E55.9) icd10 08/2015 Vitamin D, 25-Hydroxy (E55.9) icd10 02/07 Vitamin D, 25-Hydroxy (E55.9) icd10 06/10 Vitamin D, 25-Hydroxy (E55.9) icd10 05/10 Vitamin D, 25-Hydroxy (E55.9) icd10 12/08 TSH+Free T4 (E03.9) icd10 12/23/2016 TSH+Free T4 (E03.9) icd10 06/09/2018 TSH+Free T4 (E03.9) icd10 05/22/2020 TSH+Free T4 (E03.9) icd10 05/13/2015 TSH+Free T4 (E03.9) icd10 02/19/2014 TSH+Free T4 (E03.9) icd10 06/11/2014 Lipid Panel (E78.2) icd10 06/09/2018 Hepatitis Panel General (OCREVUS) CPT: 8 6704, 37151, 22096, 50498, 79695 05/22/2020 Hepatic Function Panel (7) 06/09/2018 CBC (D64.9) icd10 12/23/2017 CBC (D64.9) icd10 09/03/2014 Liver Function Test (LFT) (Z79.899) icd1 0 12/23/2017 MRI : Brain with [place] [address]) 11/05/2015 COMPREHENSIVE METABOLIC PANEL (Z79.899) icd10 06/26/2020 COMPREHENSIVE METABOLIC PANEL (Z79.899) icd10 11/13/2015 COMPREHENSIVE METABOLIC PANEL (Z79.899) icd10 05/13/2015 CBC (INCLUDES DIFF/PLT) (D64.9) icd10 [...] Brain with [place] [address]) 06/11/2014 MRI : Cervical with and without Contrast (CPT 69032) 06/11/2014 Insurance Providers Payer Name Payer Address Payer Phone Subscriber Number Group Number Insured Name Patient Relationship to Insured Coverage Start Date Coverage End Date [facility] [address] [address] [place] [id number] Raine Cota Self - patient is the insured Medical (General) History Medical History History ICD Code multiple sclerosis Lupus Surgical History Surgery Date(Month/Year) section, twice cervical ablation
--- OUTSIDE RECORDS SUMMARY | 2024-11-22 08:40 | XMS_ITS | Patient Health Record ---
Author Organization [facility] Physician Laurie es Billing Info Address [address] [place] [address] [place] [address] Care Team Providers Care Regional Account Director Name Role Phone ROSA ELENA TEJADA Primary Care Provider [phone] YOUNG LAMAR Allergies Allergen (clinical drug ingredient) Drug/Non Drug [...] Problem Status W/U Status Risk Notes Problem [id number] MS (multiple sclerosis) (G35) Active confirmed Problem 302551777 Perimenopausal vasomotor symptoms (N95.1) Active confirmed Problem 97567135 Elevated blood s ugar (R73.9) Active confirmed Problem 82774953 Hypercholesterem ia (E78.00) Active confirmed Plan Of Treatment No Information Insurance Providers Payer Name Payer Address Payer Phone Subscriber Number Group Number Insured Name Patient Relationship to Insured Coverage Start Date Coverage End Date [employer] [address] [place] [id number] Raine Cota Self - patient is the insured 2 3 Medical (General) History Medical History History ICD Code Multiple sclerosis 05/31 mammo 07/30 mammo 12/29 pap 12/29 cologuard neg Surgical History Surgery Date(Month/Year) ABLATION 04/2013 C section [id number]
--- OUTSIDE RECORDS SUMMARY | 2024-11-22 08:40 | XMS_ITS | Clinical Summary ---
Author Organization [facility] Address [address] [place] [address] Care Team Providers Care Technical Data Analyst Name Role Phone Delroy Miller MD Primary Care Provider [phone] Allergies Active Allergy Reactions Criticality Noted Date Comments Penicillins Hives Medium 04/13/2013 Hives Medications amLODIPine (NORVASC) 5 mg tablet 04/09/2022 Active aspirin 81 mg enteric coated tablet Take 1 tablet (81 mg total) by mouth daily Active multivitamin tabletIndication s:Vitamin Deficiency Prevention Take 1 tablet by mouth Active calcium carbonate-vit D3-min 600 mg calcium- 200 unit tablet Take by mouth Active pcfmratu-lufm-wk llag-hyalur ac 757-943-82-2 mg capsule Take by mouth Active FLUoxetine 10 mg tablet/capsule Take 1 tablet/caps ule (10 mg total) by mouth daily 90 tablet/capsul e 1 12/21/2023 Active diroximel fumarate (Vumerity) 231 mg capsule,delayed release(DR/EC)In dications:Multip le sclerosis (HCC) Take 462 mg by mouth 2 (two) times a day 360 capsule 1 10/16/2024 5 Active Active Problems No known active problems Encounters Date Type Department Care Team Description 10/24/2024 Telephone [facility] Scheduling [address] [place] [address] Radha Luque RMA 10/19/2024 11:30 AM CDT Telemedicine [facility] Multiple Sclerosis [facility] [address] [place] [address] Merrick Yuen MD Multiple sclerosis (HCC) (Primary Dx) 09/14/2024 Telephone [facility] Scheduling [address] [place] [address] Michelle Tatum CMA from Last 3 Months Social History Tobacco Use Types Packs/Day Years Used Date Smoking Tobacco: Former Cigarettes S tarted: 12/08/2012 Tobacco Cessation:Counseling Given: Not Answered Comments Unknown Sex and Gender Information Value Date Recorded Sex Assigned at Not on file Legal Sex Female 3:13 AM CHIEF WHEELAGE CLERK Gender Identity Female 03/10/2024 5:43 AM CDT Sexual Orientation Straight 03/10/2024 5: 43 AM CDT Obstetrics History Last Filed Vital Signs Vital Sign Reading Time Taken Comments Blood Pressure 112/80 03/14/2024 12:51 PM CHIEF WHEELAGE CLERK Pulse 103 03/14/2024 12:51 PM CHIEF WHEELAGE CLERK Temperature 36.3 C (97.3 F) 03/14/2024 12:51 PM CHIEF WHEELAGE CLERK Respiratory Rate - - Oxygen Saturation 95% 04/07/2013 11:47 AM CHIEF WHEELAGE CLERK Inhaled Oxygen Concentration - - Weight 75.8 kg (167 lb 3.2 oz) 03/14/2024 12:51 PM CHIEF WHEELAGE CLERK Height 157.5 cm (5' 2) 04/07/2013 11:47 AM CHIEF WHEELAGE CLERK Body Mass Index - - Plan of Treatment Health Maintenance Due Date Last Done Comments Cervical Cancer Screening 1972 Colon Cancer Screening-Colonoscopy 1972 Depression Screening 1972 Hepatitis C Screening 1972 Hepatitis B Screening 1990 Regular Well Visit/Exam 18-64 1990 Breast Cancer Screening-Mammogram 04/27/2014 013 Zoster Vaccine (2 of 2) 10/15/2023 08/20/2023 Influenza Vaccine (Season Ended) 2025 DTaP/Tdap/Td Vaccine (2 - Td or Tdap) 2033 07/30/2023 Pneumococcal vaccine <65 Aged Out No longer eligible based on patient's age to complete this topic Procedures Procedure Name Priority Date/Time Associated Diagnosis Comments CBC WITH AUTO DIFFERENTIAL Routine 10/09/2024 3:26 PM CDT COMPREHENSIVE METABOLIC PANEL Routine 10/09/2024 3:26 PM CDT Multiple sclerosis (HCC) SCREENING MAMMOGRAM 2D BILATERAL Routine 04/27/2013 8:03 AM CHIEF WHEELAGE CLERK from Last 3 Months or Most Recently Relevant to Health Maintenance Results * CBC with auto differential (10/09/2024 3:26 PM CDT) WBC 5.0 3.8 - 10.8 Thousand/u L [facility] RBC, POC 4.53 3.80 - 5.10 Million/uL [facility] Hgb 14.0 11.7 - 15.5 g/dL [facility] Hct 42.8 35.0 - 45.0 % [facility] MCV 94.5 80.0 - 100.0 fL [facility] MCH 30.9 27.0 - 33.0 pg [facility] MCHC 32.7 32.0 - 36.0 g/dL [facility] Comment: For adults, a slight decrease in the calculated MCHC value (in the range of 30 to 32 g/dL) is most likely not clinically significant; however, it should be interpreted with caution in correlation with other red cell parameters and the patient's clinical condition. Rdw 12.9 11.0 - 15.0 % [facility] Platelets 185 140 - 400 Thousand/u L [facility] MPV 10.8 7.5 - 12.5 fL [facility] Neutrophils, abs 3,215 1,500 - 7,800 cells/uL [facility] Lymphocytes, abs 1,205 850 - 3,900 cells/uL [facility] Monocyte abs 390 200 - 950 cells/uL [facility] Eosinophils, abs 140 15 - 500 cells/uL [facility] Basophils, abs 50 0 - 200 cells/uL [facility] Neutrophils 64.3 % [facility] Lymphocyte pct 24.1 % [facility] Monocytes 7.8 % [facility] Eosinophils 2.8 % [facility] Basophils 1.0 % [facility] 10/09/2024 3:26 PM CDT 10/09/2024 11:25 PM CDT Narrative [facility] - 10/10/2024 2:43 AM CDT FASTING:NO FASTING: NO us Merrick Yuen MD LAB BLOOD ORDERABLES Final Resul t [facility] [address] [place] [address] * (ABNORMAL) Comprehensive metabolic panel (10/09/2024 3:26 PM CDT) Glucose 112(H) 65 - 99 mg/dL [facility] Comment: Fasting reference interval For someone without known diabetes, a glucose value between 100 and 125 mg/dL is consistent with prediabetes and should be confirmed with a follow-up test. BUN 14 7 - 25 mg/dL [facility] Creatinine 0.75 0.50 - 1.03 mg/dL [facility] eGFR 96 > OR = 60 mL/min/1.7 3m2 [facility] BUN/creat ratio SEE NOTE: 6 - 22 (calc) [facility] Comment: Not Reported: BUN and Creatinine are within reference range. Sodium 139 135 - 146 mmol/L [facility] Potassium, pl 3.9 3.5 - 5.3 mmol/L [facility] [place] Chloride 102 98 - 110 mmol/L [facility] CO2 30 20 - 32 mmol/L [facility] Calcium 9.4 8.6 - 10.4 mg/dL [facility] Protein, sr 6.8 6.1 - 8.1 g/dL [facility] Albumin 4.6 3.6 - 5.1 g/dL [facility] GLOBULIN 2.2 1.9 - 3.7 g/dL (calc) [facility] Alb/glob ratio 2.1 1.0 - 2.5 (calc) [facility] Bilirubin, total 0.4 0.2 - 1.2 mg/dL [facility] Alk phos 80 37 - 153 U/L [facility] AST 21 10 - 35 U/L [facility] ALT (SGPT) 21 6 - 29 U/L [facility] Blood 10/09/2024 3:26 PM CDT 10/09/2024 11:25 PM CDT Narrative [facility] - 10/10/2024 2:43 AM CDT FASTING:NO FASTING: NO us Min Wilfrid SAVAGE LAB BLOOD ORDERABLES Final Resul t [facility] [address] [place] [address] * Screening Mammogram 2D Bilateral (04/27/2013 8:03 AM CHIEF WHEELAGE CLERK) Anatomical Region Laterality Modality Breast Bilateral Mammography 04/27/2013 8:03 AM CHIEF WHEELAGE CLERK Impressions 04/27/2013 9:13 AM CHIEF WHEELAGE CLERK 1. A left MLO view asymmetry requires [...] Larios M.D. KL:[email or web address] 09:09 AM 09:09 AM [facility] [EOD] Narrative 04/27/2013 9:13 AM CHIEF WHEELAGE CLERK EXAMINATION: BILATERAL SCREENING MAMMOGRAPHY HISTORY: Baseline mammogram. No significant family history of breast cancer. COMPARISON: None. TECHNIQUE: Bilateral digital full field of view mammography was performed, with the aid of computer aided detection (CAD). FINDINGS: The breasts are composed of heterogeneously dense tissue, which may limit the sensitivity of mammography. No significant mass or other findings are seen in the right breast. A left MLO view asymmetry is seen at the level of the nipple at a posterior depth. Additional imaging is recommended. Procedure Note Provider, MD [...] Larios M.D. KL:[email or web address] 09:09 AM 09:09 AM [facility] [EOD] Tez Portillo MD IM MAMMO PROCEDURES Final Result from Last 3 Months or Most Recently Relevant to Health Maintenance Insurance [employer] Care Teams Technical Data Analyst Relationship Specialty Start Date End Date Delroy Miller MD PCP - General Internal Medicine 08/02/23
--- OUTSIDE RECORDS SUMMARY | 2024-11-22 08:40 | XMS_ITS | Referral Summary ---
Author Organization [facility] Address [address] [place] [address] Care Team Providers Care Mechanical Service Representative Name Role Phone Delroy Miller MD Primary Care Provider [phone] Encounters Date Type Department Care Team Description 10/24/2024 Telephone [facility] Scheduling [address] [place] [address] Radha Luque RMA 10/19/2024 11:30 AM CDT Telemedicine [facility] Multiple Sclerosis [address] [facility] 7th [place] [address] Merrick Yuen MD Multiple sclerosis (HCC) (Primary Dx) 09/14/2024 Telephone [facility] Scheduling [address] [place] [address] Michelle Tatum CMA from Last 3 Months Allergies Active Allergy [...] 200 unit tablet Take by mouth Active qaeymrcx-gqjh-mb llag-hyalur ac 922-279-48-2 mg capsule Take by mouth Active FLUoxetine [...] on file Legal Sex Female 3:13 AM CEMENT TRUCK DRIVER Gender Identity Female 03/10/2024 5:43 AM CDT Sexual Orientation Straight 03/10/2024 5: 43 AM CDT Last Filed Vital Signs Vital Sign Reading Time Taken Comments Blood Pressure 112/80 03/14/2024 12:51 PM CEMENT TRUCK DRIVER Pulse 103 03/14/2024 12:51 PM CEMENT TRUCK DRIVER Temperature 36.3 C (97.3 F) 03/14/2024 12:51 PM CEMENT TRUCK DRIVER Respiratory Rate - - Oxygen Saturation 95% 04/07/2013 11:47 AM CEMENT TRUCK DRIVER Inhaled Oxygen Concentration - - Weight 75.8 kg (167 lb 3.2 oz) 03/14/2024 12:51 PM CEMENT TRUCK DRIVER Height 157.5 cm (5' 2) 04/07/2013 11:47 AM CEMENT TRUCK DRIVER Body Mass Index - - Plan of Treatment Not on file Procedures Procedure Name Priority Date/Time Associated Diagnosis Comments CBC WITH AUTO DIFFERENTIAL Routine 10/09/2024 3:26 PM CDT COMPREHENSIVE METABOLIC PANEL Routine 10/09/2024 3:26 PM CDT Multiple sclerosis (HCC) SCREENING MAMMOGRAM 2D BILATERAL Routine 04/27/2013 8:03 AM CEMENT TRUCK DRIVER from Last 3 Months or Most Recently Relevant to Health Maintenance Results * CBC with auto differential (10/09/2024 3:26 PM CDT) WBC 5.0 3.8 - 10.8 Thousand/u L [facility] RBC, POC 4.53 3.80 - 5.10 Million/uL [facility] Hgb 14.0 11.7 - 15.5 g/dL [facility] Hct 42.8 35.0 - 45.0 % [facility] MCV 94.5 80.0 - 100.0 fL [facility] MCH 30.9 27.0 - 33.0 pg [facility] MCHC 32.7 32.0 - 36.0 g/dL [facility] Comment: For adults, a slight decrease in the calculated MCHC value (in the range of 30 to 32 g/dL) is most likely not clinically significant; however, it should be interpreted with caution in correlation with other red cell parameters and the patient's clinical condition. Rdw 12.9 11.0 - 15.0 % [facility] Platelets 185 140 - 400 Thousand/u L [facility] MPV 10.8 7.5 - 12.5 fL [facility] Neutrophils, abs 3,215 1,500 - 7,800 cells/uL [facility] Lymphocytes, abs 1,205 850 - 3,900 cells/uL [facility] Monocyte abs 390 200 - 950 cells/uL [facility] Eosinophils, abs 140 15 - 500 cells/uL [facility] Basophils, abs 50 0 - 200 cells/uL [facility] Neutrophils 64.3 % [facility] Lymphocyte pct 24.1 % [facility] Monocytes 7.8 % [facility] Eosinophils 2.8 % [facility] Basophils 1.0 % [facility] 10/09/2024 3:26 PM CDT 10/09/2024 11:25 PM CDT Narrative [facility] - 10/10/2024 2:43 AM CDT FASTING:NO FASTING: NO us Merrick Yuen MD LAB BLOOD ORDERABLES Final Resul t [facility] [address] [place] [address] * (ABNORMAL) Comprehensive metabolic panel (10/09/2024 3:26 PM CDT) [facility] Glucose 112(H) 65 - 99 mg/dL [facility] Comment: Fasting reference interval For someone without known diabetes, a glucose value between 100 and 125 mg/dL is consistent with prediabetes and should be confirmed with a follow-up test. BUN 14 7 - 25 mg/dL [facility] Creatinine 0.75 0.50 - 1.03 mg/dL [facility] eGFR 96 > OR = 60 mL/min/1.7 3m2 [facility] BUN/creat ratio SEE NOTE: 6 - 22 (calc) [facility] Comment: Not Reported: BUN and Creatinine are within reference range. Sodium 139 135 - 146 mmol/L [facility] Potassium, pl 3.9 3.5 - 5.3 mmol/L [facility] Chloride 102 98 - 110 mmol/L [facility] CO2 30 20 - 32 mmol/L [facility] Calcium 9.4 8.6 - 10.4 mg/dL [facility] Protein, sr 6.8 6.1 - 8.1 g/dL [facility] Albumin 4.6 3.6 - 5.1 g/dL [facility] GLOBULIN 2.2 1.9 - 3.7 g/dL (calc) [facility] Alb/glob ratio 2.1 1.0 - 2.5 (calc) [facility] Bilirubin, total 0.4 0.2 - 1.2 mg/dL [facility] Alk phos 80 37 - 153 U/L [facility] AST 21 10 - 35 U/L [facility] ALT (SGPT) 21 6 - 29 U/L [facility] Blood 10/09/2024 3:26 PM CDT 10/09/2024 11:25 PM CDT Narrative [facility] - 10/10/2024 2:43 AM CDT FASTING:NO FASTING: NO us Merrick Yuen MD LAB BLOOD ORDERABLES Final Resul t [facility] [address] [place] [address] * Screening Mammogram 2D Bilateral (04/27/2013 8:03 AM CEMENT TRUCK DRIVER) Anatomical Region Laterality Modality Breast Bilateral Mammography 04/27/2013 8:03 AM CEMENT TRUCK DRIVER Impressions 04/27/2013 9:13 AM CEMENT TRUCK DRIVER 1. A left MLO view asymmetry requires [...] AM [facility] [EOD] Narrative 04/27/2013 9:13 AM CEMENT TRUCK DRIVER EXAMINATION: BILATERAL SCREENING MAMMOGRAPHY HISTORY: Baseline mammogram. [...] Larios M.D. KL:kamaljit 09:09 AM 09:09 AM [facility] [EOD] Tez Portillo MD IMG MAMMO PROCEDURES Final Result from Last 3 Months or Most Recently Relevant to Health Maintenance Insurance [employer] Care Teams Mechanical Service Representative Relationship Specialty Start Date End Date Delroy Miller MD PCP - General Internal Medicine 08/02/23
--- OUTSIDE RECORDS SUMMARY | 2024-11-22 08:40 | XMS_ITS | Patient Health Record ---
Author Organization [facility] Address [address] [facility] [address] [place] [address] Care Team Providers Care Hypo Dipper Name Role Phone Andry Lane Primary Care Provider Unavailabl e Reason For Referral No Information Medications Medication SIG (Take, Route, Frequency, Duration) Notes Start Date End Date Status PROzac Active Tecfidera Active Social History Sex Assigned At : Social History Observation Description Sex Assigned At Female Plan Of Treatment No Information Insurance Providers Payer Name Payer Address Payer Phone Subscriber Number Group Number Insured Name Patient Relationship to Insured Coverage Start Date Coverage End Date [facility] [address] [place] [id number] Raine Cota Self - patient is the insured 1
== END 2024-11-22 08:32 | disposition home or self-care (01) ==
PROVIDERS: PCP Internal Medicine; Visit Provider Internal Medicine
DX: R10.11 Right upper quadrant pain (principal)
CPT/HCPCS: 76705

== ENCOUNTER 2024-11-29 08:07 | Outpatient (CLI) | payer BC, SELFPAY ==
--- NOTE | ~2024-11-29 | NM_ITS ---
EXAMINATION: [id number]_NM DATE: 11/29/2024 10:30 CDT INDICATION: Right upper quadrant pain Procedure: Hepatobiliary scan performed following IV administration 5.9 mCi Tc 99m Choletec. At 60 m inutes 1.5 mcg CCK administered IV for evaluation of gallbladder ejection fraction. Indication: Right upper quadrant pain Comparison: Ultrasound dated Findings: There is normal radiotracer uptake in the liver parenchyma with prompt excretion into the b iliary tract. Gallbladder visualized at 10 minutes. Small bowel visualized at 15 minutes. Gallbla dder ejection fraction measures 15 %. (Normal is considered 10-90%, but most patients with gallbladde r dysfunction have GBEF of less than 35%) Impression: 1: Low gallbladder ejection fraction measuring 15%. Low GBEF is associated with gallbladder dysfunct ion, although not specific for acute or chronic cholecystitis. Reviewed, dictated and finalized at location A. Impression: 1: Low gallbladder ejection fraction measuring 15%. Low GBEF is associated wit h gallbladder dysfunction, although not specific for acute or chronic cholecyst itis.
--- OUTSIDE RECORDS SUMMARY | 2024-11-29 08:12 | XMS_ITS | Patient Health Record ---
Author Organization [facility] Physician Laurie es Billing Info Address [address] [place] [address] [place] [address] Care Team Providers Care Kettle Room Helper Name Role Phone ROSA ELENA TEJADA Primary Care Provider YOUNG LAMAR [phone] Allergies Allergen (clinical drug ingredient) Drug/Non [...] Problem Status W/U Status Risk Notes Problem 41751706 MS (multiple sclerosis) (G35) Active confirmed Problem 708543592 Perimenopausal vasomotor symptoms (N95.1) Active confirmed Problem 83962546 Elevated blood s ugar (R73.9) Active confirmed Problem 41092759 Hypercholesterem ia (E78.00) Active confirmed Plan Of Treatment No Information Insurance Providers Payer Name Payer Address Payer Phone Subscriber Number Group Number Insured Name Patient Relationship to Insured Coverage Start Date Coverage End Date [employer] CHOICE POS II [address] [place] [id number] Raine Cota Self - patient is the insured 2 3 Medical (General) History Medical History History ICD Code Multiple sclerosis 05/31 mammo 07/30 mammo 12/29 pap 12/29 cologuard neg Surgical History Surgery Date(Month/Year) ABLATION 04/2013 C section [id number]
--- OUTSIDE RECORDS SUMMARY | 2024-11-29 08:12 | XMS_ITS | Clinical Summary ---
Author Organization [facility] Address [facility] [place] [address] Care Team Providers Care Special Tester Name Role Phone Unavailable Primary Care Provider [...]
--- OUTSIDE RECORDS SUMMARY | 2024-11-29 08:12 | XMS_ITS | Referral Summary ---
Author Organization [facility] Address [address] [place] [address] Care Team Providers Care Stained Glass Artist Name Role Phone Delroy Miller MD Primary Care Provider [phone] Encounters Date Type Department Care Team Description 10/24/2024 Telephone [facility] Scheduling [address] [place] [address] Radha Luque RMA 10/19/2024 11:30 AM CDT Telemedicine [facility] Multiple Sclerosis [address] [facility] 7th [place] [address] Merrick Yuen MD Multiple sclerosis (HCC) (Primary Dx) 09/14/2024 Telephone [facility] [address] [place] [address] Michelle Tatum CMA from Last [...] 200 unit tablet Take by mouth Active pjzswujz-yzox-wx llag-hyalur ac 207-438-57-2 mg capsule Take by mouth Active FLUoxetine [...] on file Legal Sex Female 3:13 AM DISPATCHER CHIEF COAL SLURRY Gender Identity Female 03/10/2024 5:43 AM CDT Sexual Orientation Straight 03/10/2024 5: 43 AM CDT Last Filed Vital Signs Vital Sign Reading Time Taken Comments Blood Pressure 112/80 03/14/2024 12:51 PM DISPATCHER CHIEF COAL SLURRY Pulse 103 03/14/2024 12:51 PM DISPATCHER CHIEF COAL SLURRY Temperature 36.3 C (97.3 F) 03/14/2024 12:51 PM DISPATCHER CHIEF COAL SLURRY Respiratory Rate - - Oxygen Saturation 95% 04/07/2013 11:47 AM DISPATCHER CHIEF COAL SLURRY Inhaled Oxygen Concentration - - Weight 75.8 kg (167 lb 3.2 oz) 03/14/2024 12:51 PM DISPATCHER CHIEF COAL SLURRY Height 157.5 cm (5' 2) 04/07/2013 11:47 AM DISPATCHER CHIEF COAL SLURRY Body Mass Index - - Plan of Treatment Not on file Procedures Procedure Name Priority Date/Time Associated Diagnosis Comments CBC WITH AUTO DIFFERENTIAL Routine 10/09/2024 3:26 PM CDT COMPREHENSIVE METABOLIC PANEL Routine 10/09/2024 3:26 PM CDT Multiple sclerosis (HCC) SCREENING MAMMOGRAM 2D BILATERAL Routine 04/27/2013 8:03 AM DISPATCHER CHIEF COAL SLURRY from Last 3 Months or Most Recently Relevant to Health Maintenance Results * CBC with auto differential (10/09/2024 3:26 PM CDT) WBC 5.0 3.8 - 10.8 Thousand/u L [facility] RBC, POC 4.53 3.80 - 5.10 Million/uL [facility] Hgb 14.0 11.7 - 15.5 g/dL [facility] Hct 42.8 35.0 - 45.0 % [facility] MCV 94.5 80.0 - 100.0 fL [facility] MCH 30.9 27.0 - 33.0 pg [facility] MCHC 32.7 32.0 - 36.0 g/dL [facility] Comment: For adults, a slight decrease in the calculated MCHC value (in the range of 30 to 32 g/dL) is most likely not clinically significant; however, it should be interpreted with caution in correlation with other red cell parameters and the patient's clinical condition. Rdw 12.9 11.0 - 15.0 % [facility] Platelets 185 140 - 400 Thousand/u L [facility] MPV 10.8 7.5 - 12.5 fL [facility] Neutrophils, abs 3,215 1,500 - 7,800 cells/uL [facility] Lymphocytes, abs 1,205 850 - 3,900 cells/uL [facility] Monocyte abs 390 200 - 950 cells/uL [facility] Eosinophils, abs 140 15 - 500 cells/uL [facility] Basophils, abs 50 0 - 200 cells/uL [facility] Neutrophils 64.3 % [facility] Lymphocyte pct 24.1 % [facility] Monocytes 7.8 % [facility] Eosinophils 2.8 % [facility] Basophils 1.0 % [facility] 10/09/2024 3:26 PM CDT 10/09/2024 11:25 PM CDT Narrative [facility] - 10/10/2024 2:43 AM CDT FASTING:NO FASTING: NO us Merrick Yuen MD LAB BLOOD ORDERABLES Final Resul t [facility] [address] [place] [address] * (ABNORMAL) Comprehensive metabolic panel (10/09/2024 3:26 PM CDT) [facility] Glucose 112(H) 65 - 99 mg/dL [facility] Comment: Fasting reference interval For someone without [...] ORDERABLES Final Resul t [facility] [address] [place] [address] * Screening Mammogram 2D Bilateral (04/27/2013 8:03 AM DISPATCHER CHIEF COAL SLURRY) Anatomical Region Laterality Modality Breast Bilateral Mammography 04/27/2013 8:03 AM DISPATCHER CHIEF COAL SLURRY Impressions 04/27/2013 9:13 AM DISPATCHER CHIEF COAL SLURRY 1. A left MLO view asymmetry requires [...] AM BM [EOD] Narrative 04/27/2013 9:13 AM DISPATCHER CHIEF COAL SLURRY EXAMINATION: BILATERAL SCREENING MAMMOGRAPHY HISTORY: Baseline mammogram. [...] Larios M.D. KL:kamaljit 09:09 AM 09:09 AM [facility] [EOD] Tez Portillo MD IMG MAMMO PROCEDURES Final Result from Last 3 Months or Most Recently Relevant to Health Maintenance Insurance [employer] Care Teams Stained Glass Artist Relationship Specialty Start Date End Date Delroy Miller MD PCP - General Internal Medicine 08/02/23
--- OUTSIDE RECORDS SUMMARY | 2024-11-29 08:12 | XMS_ITS | Clinical Summary ---
Author Organization [facility] Address [address] [place] [address] Care Team Providers Care Circuit Rider Name Role Phone Delroy Miller MD Primary Care Provider [phone] Allergies Active Allergy Reactions Criticality Noted Date Comments Penicillins Hives Medium 04/13/2013 Hives Medications amLODIPine (NORVASC) 5 mg tablet 04/09/2022 Active aspirin 81 mg enteric coated tablet Take 1 tablet (81 mg total) by mouth daily Active multivitamin tabletIndication s:Vitamin Deficiency Prevention Take 1 tablet by mouth Active calcium carbonate-vit D3-min 600 mg calcium- 200 unit tablet Take by mouth Active yxvwdmuv-rofu-ji llag-hyalur ac 741-168-73-2 mg capsule Take by mouth Active FLUoxetine [...] Type Department Care Team Description 10/24/2024 Telephone [facility] Scheduling [address] [place] [address] Radha Luque RMA 10/19/2024 11:30 AM CDT Telemedicine [facility] Multiple Sclerosis Replaced by [facility] [address] [place] [address] Merrick Yuen MD Multiple sclerosis (HCC) (Primary Dx) 09/14/2024 Telephone [facility] Scheduling [address] [facility] [address] [place] [address] Michelle Tatum CMA from Last 3 Months Social History Tobacco Use Types Packs/Day Years Used Date Smoking Tobacco: Former Cigarettes S tarted: 12/08/2012 Tobacco Cessation:Counseling Given: Not Answered Comments Unknown Sex and Gender Information Value Date Recorded Sex Assigned at Not on file Legal Sex Female 3:13 AM SEWER SYSTEM SUPERVISOR Gender Identity Female 03/10/2024 5:43 AM CDT Sexual Orientation Straight 03/10/2024 5: 43 AM CDT Obstetrics History Last Filed Vital Signs Vital Sign Reading Time Taken Comments Blood Pressure 112/80 03/14/2024 12:51 PM SEWER SYSTEM SUPERVISOR Pulse 103 03/14/2024 12:51 PM SEWER SYSTEM SUPERVISOR Temperature 36.3 C (97.3 F) 03/14/2024 12:51 PM SEWER SYSTEM SUPERVISOR Respiratory Rate - - Oxygen Saturation 95% 04/07/2013 11:47 AM SEWER SYSTEM SUPERVISOR Inhaled Oxygen Concentration - - Weight 75.8 kg (167 lb 3.2 oz) 03/14/2024 12:51 PM SEWER SYSTEM SUPERVISOR Height 157.5 cm (5' 2) 04/07/2013 11:47 AM SEWER SYSTEM SUPERVISOR Body Mass Index - - Plan of [...] MAMMOGRAM 2D BILATERAL Routine 04/27/2013 8:03 AM SEWER SYSTEM SUPERVISOR from Last 3 Months or Most Recently Relevant to Health Maintenance Results * CBC with auto differential (10/09/2024 3:26 PM CDT) WBC 5.0 3.8 - 10.8 Thousand/u L [facility] RBC, POC 4.53 3.80 - 5.10 Million/uL [facility] Hgb 14.0 11.7 - 15.5 g/dL [facility] Hct 42.8 35.0 - 45.0 % [facility] MCV 94.5 80.0 - 100.0 fL [facility] MCH 30.9 27.0 - 33.0 pg [facility] MCHC 32.7 32.0 - 36.0 g/dL [facility] Comment: For adults, a slight decrease in the calculated MCHC value (in the range of 30 to 32 g/dL) is most likely not clinically significant; however, it should be interpreted with caution in correlation with other red cell parameters and the patient's clinical condition. Rdw 12.9 11.0 - 15.0 % [facility] Platelets 185 140 - 400 Thousand/u L [facility] MPV 10.8 7.5 - 12.5 fL [facility] Neutrophils, abs 3,215 1,500 - 7,800 cells/uL [facility] Lymphocytes, abs 1,205 850 - 3,900 cells/uL [facility] Monocyte abs 390 200 - 950 cells/uL [facility] Eosinophils, abs 140 15 - 500 cells/uL [facility] Basophils, abs 50 0 - 200 cells/uL [facility] Neutrophils 64.3 % [facility] Lymphocyte pct 24.1 % [facility] Monocytes 7.8 % [facility] Eosinophils 2.8 % [facility] Basophils 1.0 % [facility] 10/09/2024 3:26 PM CDT 10/09/2024 11:25 PM CDT Narrative [facility] - 10/10/2024 2:43 AM CDT FASTING:NO FASTING: NO us Merrick Yuen MD LAB BLOOD ORDERABLES Final Resul t [facility] [address] [place] [address] * (ABNORMAL) Comprehensive metabolic panel (10/09/2024 3:26 PM CDT) Glucose 112(H) 65 - 99 mg/dL [facility] Comment: Fasting reference interval For someone without known diabetes, a glucose value between 100 and 125 mg/dL is consistent with prediabetes and should be confirmed with a follow-up test. BUN 14 7 - 25 mg/dL [facility] Creatinine 0.75 0.50 - 1.03 mg/dL [facility] eGFR 96 > OR = 60 mL/min/1.7 3m2 [facility] BUN/creat ratio SEE NOTE: 6 - 22 (calc) [facility] Comment: Not Reported: BUN and Creatinine are within reference range. Sodium 139 135 - 146 mmol/L [facility] Potassium, pl 3.9 3.5 - 5.3 mmol/L [facility] Chloride 102 98 - 110 mmol/L [facility] CO2 30 20 - 32 mmol/L [facility] Calcium 9.4 8.6 - 10.4 mg/dL [facility] Protein, sr 6.8 6.1 - 8.1 g/dL [facility] Albumin 4.6 3.6 - 5.1 g/dL [facility] GLOBULIN 2.2 1.9 - 3.7 g/dL (calc) [facility] Alb/glob ratio 2.1 1.0 - 2.5 (calc) [facility] Bilirubin, total 0.4 0.2 - 1.2 mg/dL [facility] Alk phos 80 37 - 153 U/L [facility] AST 21 10 - 35 U/L [facility] ALT (SGPT) 21 6 - 29 U/L [facility] Blood 10/09/2024 3:26 PM CDT 10/09/2024 11:25 PM CDT Narrative [facility] - 10/10/2024 2:43 AM CDT FASTING:NO FASTING: NO us Min Wilfrid SAVAGE LAB BLOOD ORDERABLES Final Resul t [facility] [address] [place] [address] * Screening Mammogram 2D Bilateral (04/27/2013 8:03 AM SEWER SYSTEM SUPERVISOR) Anatomical Region Laterality Modality Breast Bilateral Mammography 04/27/2013 8:03 AM SEWER SYSTEM SUPERVISOR Impressions 04/27/2013 9:13 AM SEWER SYSTEM SUPERVISOR 1. A left MLO view asymmetry requires [...] Larios M.D. KL:kamaljit 09:09 AM 09:09 AM [facility] [EOD] Narrative 04/27/2013 9:13 AM SEWER SYSTEM SUPERVISOR EXAMINATION: BILATERAL SCREENING MAMMOGRAPHY HISTORY: Baseline mammogram. [...] Larios M.D. KL:kamaljit 09:09 AM 09:09 AM [facility] [EOD] Tez Portillo MD IM MAMMO PROCEDURES Final Result from Last 3 Months or Most Recently Relevant to Health Maintenance Insurance [employer] Care Teams Circuit Rider Relationship Specialty Start Date End Date Delroy Miller MD PCP - General Internal Medicine 08/02/23
--- OUTSIDE RECORDS SUMMARY | 2024-11-29 08:12 | XMS_ITS | Patient Health Record ---
Author Organization [facility] Address [address] [facility] [address] [place] [address] Care Team Providers Care Student Success Counselor Name Role Phone Andry Lane Primary Care [...] Insured Coverage Start Date Coverage End Date [facility] [address] [place] [id number] Raine Cota Self - patient is the insured 1
--- OUTSIDE RECORDS SUMMARY | 2024-11-29 08:13 | XMS_ITS | Patient Health Record ---
Author Organization [facility] Address [address] [facility] [address] [place], [place] [address] Care Team Providers Care Party Host/Hostess Name Role Phone Molly Ly Primary Care Provider Kaiden quinteros MagalysVicki gurrola Unavailable [phone] Allergies Allergen (clinical drug ingredient) Drug/Non Drug [...] or hopeless No Section Notes: Relocated from [place]. 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 Relocated from [place]. Adela band has leukemia that is in remission. Relocated from [place]. Hus band has leukemia that is in remission. Relocated from [place]. Hus band has leukemia that is in remission. Relocated from [place]. Hus band has leukemia that is in remission. Relocated from [place]. Hus band has leukemia that is in remission. Relocated from [place]. Adela band has leukemia that is in remission. Relocated from [place]. Adela band has leukemia that is in remission. Relocated from [place]. Adela band has leukemia that is in remission. Relocated from [place]. 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 Relocated from [place]. 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 Relocated from [place]. 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 Relocated from [place]. 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 Problems Problem Type SNOMED Code ICD Code Onset Dates Problem Status W/U Status Risk Notes Problem Vitamin D deficiency (92268909) Vitamin D deficiency (E55.9) Active confirmed Problem Adjustment disorder with mixed anxiety and depressed mood (992642108) Adjustment disorder with mixed anxiety and depressed mood (F43.23) Active confirmed She is having increased anxiety -- will increase prozac to 30mg QD. Problem Multiple sclerosis (67155687) Multiple sclerosis (G35) Active confirmed Patient who [...] which we will supplement. Problem Joint pain (19972510) Pain in unspecified joint (M25.50) Active confirmed She has intermittent joint pain. She was diagnosed with lupus in the past. She can use naproxen PRN. Problem Frequency of micturition (063328271) Frequency of micturition (R35.0) Active confirmed Check UA -- call for results. Problem Fatigue (15079414) Fatigue (R53.83) Active confirmed Not as big [...] icd10 08/2015 Vitamin D, 25-Hydroxy (E55.9) icd10 06/10 Vitamin D, 25-Hydroxy (E55.9) icd10 05/10 Vitamin D, 25-Hydroxy (E55.9) icd10 12/08 Vitamin D, 25-Hydroxy (E55.9) icd10 02/07 TSH+Free T4 (E03.9) icd10 02/19/2014 TSH+Free T4 (E03.9) icd10 12/23/2016 TSH+Free T4 (E03.9) icd10 06/09/2018 TSH+Free T4 (E03.9) icd10 05/22/2020 TSH+Free T4 (E03.9) icd10 05/13/2015 TSH+Free T4 (E03.9) icd10 06/11/2014 Lipid Panel (E78.2) icd10 06/09/2018 Hepatitis Panel General (OCREVUS) CPT: 8 6704, 09878, 64341, 77228, 14318 05/22/2020 Hepatic Function Panel (7) 06/09/2018 CBC (D64.9) icd10 12/23/2017 CBC (D64.9) icd10 09/03/2014 Liver Function Test (LFT) (Z79.899) icd1 0 12/23/2017 MRI : Brain with [place] [address]) 11/05/2015 COMPREHENSIVE METABOLIC PANEL (Z79.899) icd10 06/26/2020 COMPREHENSIVE METABOLIC PANEL (Z79.899) icd10 11/13/2015 COMPREHENSIVE METABOLIC PANEL (Z79.899) icd10 05/13/2015 CBC (INCLUDES DIFF/PLT) (D64.9) icd10 CBC (INCLUDES DIFF/PLT) (D64.9) icd10 CBC (INCLUDES DIFF/PLT) (D64.9) icd10 CBC (INCLUDES DIFF/PLT) (D64.9) icd10 VITAMIN B12 (E53.8) icd10 02/19/2014 VITAMIN B12 (E53.8) icd10 06/11/2014 VITAMIN B12 (E53.8) icd10 05/13/2015 CBC (INCLUDES DIFF/PLT) (D64.9) icd10 CBC (INCLUDES DIFF/PLT) (D64.9) icd10 urine analysis 05/13/2016 Urine Culture, Routine 05/13/2016 QuantiFERON TB Gold 05/22/2020 Future Test Test Name Order Date MRI : Brain [place] [address]) 06/11/2014 MRI : Cervical with and without Contrast (CPT 22914) 06/11/2014 Insurance Providers Payer Name Payer Address Payer Phone Subscriber Number Group Number Insured Name Patient Relationship to Insured Coverage Start Date [facility]age End Date [facility] [address] [address] [place] [id number] Raine Cota Self - patient is the insured Medical (General) History Medical History History ICD Code multiple sclerosis Lupus Surgical History Surgery Date(Month/Year) section, twice cervical ablation
== END 2024-11-29 08:08 | disposition home or self-care (01) ==
LOC: CHSIMG 08:10
PROVIDERS: PCP Internal Medicine; Visit Provider Internal Medicine
DX: R10.11 Right upper quadrant pain (principal); R93.3 Abnormal findings on diagnostic imaging of other parts of digestive tract
CPT/HCPCS: 78227; A9537; J2805

== ENCOUNTER 2025-01-02 08:26 | Outpatient (CLI) | payer BC, SELFPAY ==
--- OUTSIDE RECORDS SUMMARY | 2024-12-18 12:30 | XMS_ITS ---
Author Organization [facility]ly [facility] ([address]) Address [address] [place] [address] Care Team Providers Care Sales Estimator Name Role Phone Ronnie Patel Primary Care Provider Mayur Maldonado Unavailable [phone] Jorge SAVAGE, Ronnie LAZAR Unavailable UnavailIvis Álvarez [phone] REASON FOR VISIT Chronic upper airway symptoms concerning for uncontrolled atopic disease, Chronic lower airways symptoms concerning for possible asthma Social History Sex Assigned At : Social History Observation Description Sex Assigned At Female Problems Problem Type SNOMED Code ICD Code Onset Dates Problem Status W/U Status Risk Notes Problem Allergic rhinitis caused by pollen (disorder) (98010787) Allergic rhinitis due to pollen (J30.1) Active confirmed Problem Allergic rhinitis caused by animal hair and dander (580059006637446) Allergic rhinitis due to animal (cat) (dog) hair and dander (J30.81) Active confirmed Problem Allergic rhinitis (48769353) Other allergic rhinitis (J30.89) Active confirmed Problem Chronic allergic conjunctivitis (94564813) Other chronic allergic conjunctivitis (H10.45) Active confirmed Problem Chronic rhinitis (52518390) Chronic rhinitis (J31.0) Active confirmed Problem Uncomplicated moderate persistent asthma (375152062) Moderate persistent asthma, uncomplicated (J45.40) Active confirmed Problem Uncomplicated mild persistent asthma (258407048) Mild persistent asthma, uncomplicated (J45.30) Active confirmed Problem Uncomplicated severe persistent asthma (403287556) Severe persistent asthma, uncomplicated (J45.50) Active confirmed Encounters Encounter Location Date Provider Diagnosis [facility] [address] [facility] [address] [place] [address] 12/18/2024 Ivis Sarabia Allergic rhinitis du e to pollen J30.1 ; Allergic rhinitis due to animal (cat) (dog) hair and dander J30.81 ; Other allergic rhinitis J30.89 ; Other chronic allergic conjunctivitis H10.45 ; Hypertrophy of nasal turbinates J34.3 ; Chronic rhinitis J31.0 ; Moderate persistent asthma, uncomplicated J45.40 ; Mild persistent asthma, uncomplicated J45.30 and Severe persistent asthma, uncomplicated J45.50 Assessments Encounter Date Diagnosis (ICD Code) Assessment Notes Treatment Notes Treatment Clinical Notes Section Notes 12/18/2024 Allergic rhinitis due to pollen (ICD-10 - J30.1) Given the history and symptoms, skin testing was performed to common aeroallergens to determine atopic status. clearly suffers from atopic disease based upon our skin testing and clinical history. Accordingly, we have introduced a new, aggressive medication regimen, discussed nasal washes and allergy-specific avoidance measures. We also discussed adjunctive therapies including subcutaneous, specific allergen immunotherapy as relates to the treatment and prevention of atopic disease. They are currently considering the risks, benefits and alternatives to this care. Risks: bleeding, infection, allergic reaction, anaphylaxis; Benefits: reduced need for medications, improved symptoms, disease modification. Alternatives: watch/wait, change medication regimen, improve allergy avoidance measures. Follow-up in 1 month for interval evaluation and management 12/18/2024 Allergic rhinitis due to animal (cat) (dog) hair and dander (ICD-10 - J30.81) Follow allergen avoidance, meds and consider SCIT as an adjunctive treatment to current regimen 12/18/2024 Other allergic rhinitis (ICD-10 - J30.89) Follow allergen avoidance, meds and consider SCIT as an adjunctive treatment to current regimen 12/18/2024 Other chronic allergic conjunctivitis (ICD-10 - H10.45) Given ocular signs and symptoms I encouraged allergy avoidance measures and meds as above. If symptoms persist, consider adding additional medications including intraocular antihistamine/mas t cell stabilizer, PRN and consider SCIT as an adjunctive measure 12/18/2024 Hypertrophy of nasal turbinates (ICD-10 - J34.3) 12/18/2024 Chronic rhinitis (ICD-10 - J31.0) 12/18/2024 Moderate persistent asthma, uncomplicated (ICD-10 - J45.40) 12/18/2024 Mild persistent asthma, uncomplicated (ICD-10 - J45.30) 12/18/2024 Severe persistent asthma, uncomplicated (ICD-10 - J45.50) Plan Of Treatment Treatment Notes Assessment Notes Allergic rhinitis due to pollen Given th e history and symptoms, skin testing was performed to common aeroallergens to determine atopic status. clearly suffers from atopic disease based upon our skin testing and clinical history. Accordingly, we have introduced a new, aggressive medication regimen, discussed nasal washes and allergy-specific avoidance measures. We also discussed adjunctive therapies including subcutaneous, specific allergen immunotherapy as relates to the treatment and prevention of atopic disease. They are currently considering the risks, benefits and alternatives to this care. Risks: bleeding, infection, allergic reaction, anaphylaxis; Benefits: reduced need for medications, improved symptoms, disease modification. Alternatives: watch/wait, change medication regimen, improve allergy avoidance measures. Follow-up in 1 month for interval evaluation and management Allergic rhinitis due to ani mal (cat) (dog) hair and dander Follow allergen avoidance, meds and consider SCIT as an adjunctive treatment to current regimen Other allergic rhinitis Follow allergen avoidance, meds and consider SCIT as an adjunctive treatment to current regimen Other chronic allergic conjunctivitis Gi sarahi ocular signs and symptoms I encouraged allergy avoidance measures and meds as above. If symptoms persist, consider adding additional medications including intraocular antihistamine/mast cell stabilizer, PRN and consider SCIT as an adjunctive measure Next Appt Details Follow Up: 4 Weeks, Reason: Evaluation and Management Progress Notes * Hammad VELÁSQUEZNomiB:1970 ( 54 yo F)Acc No.[id number]:12/18/2024 Progress Notes Patient: Raine WARREN Provider: Addis Sarabia DNP INDUSTRIAL WASTE TREATMENT TECHNICIANEricC :1970 A ge:54 Y S ex:Female Date:12/18/2024 Address:[address] [place] [address] Pcp:Ronnie Patel Subjective: * Chief Complaints: * 1 . Chronic upper airway symptoms concerning for uncontrolled atopic disease. 2. Chronic lower airways symptoms concerning for possible asthma. * HPI: * Introduction: HPI: x . * ROS: A LLERGY: Positive p er the HPI and history, otherwise unremarkable.? S PECIAL SENSES: Positve for n one. C ONSTITUTIONAL: Positive for n one. E NT: Positive p er the HPI and history, otherwise unremarkable.? R ESPIRATORY: Positive p er the HPI and history, otherwise unremakable.? O PHTHALMOLOGY: Positive for p er the HPI and history, otherwise unremarkable. E NDOCRINOLOGY: Positive for n one. C ARDIOLOGY: Positive for n one. G ASTROENTEROLOGY: Positive for n one. U ROLOGY: Positive for n one. D ERMATOLOGY: Positive for p er the HPI and history, otherwise unremakable. N EUROLOGY: Positive for n one. H EMATOLOGY/LYMPH: Positive for n one. M USCULOSKELETAL: Positive for n one. P SYCHOLOGY: Positive for n one. A ll other review of systems per the HPI and history, otherwise unremarkable. * Medical History: Objective: * Vitals: * Examination: G eneral examination: General appearance: p leasant, well-developed, well-nourished. HEENT: p upils equal, round, and reactive to light and accommodation, conjunctiva are injected bilaterally, no tenderness to palpation of the sinuses, TM's without evidence of acute infection, turbinates 2+ swollen and pale inferiorly bilaterally, clear rhinorrhea is present, no polyps noted, no septal perforation, posterior oropharynx is erythematous and cobblestoning is present, erythema on pharyngeal wall, no exudates, no tongue swelling, and uvula is midline. Oral cavity: n ormal, no lesions. Neck, thyroid : s upple, non-tender, no anterior cervical lymphadenopathy. Breasts : n ot performed. Heart: R RR, S1-S2, no murmurs, no rubs, no gallops. Lungs: c lear to auscultation and percussion in all lung rogers, no wheezes or crackles. Abdomen: s oft, NT/ND, normal active bowel sounds. Neurologic exam: u nremarkable. Skin: n ormal, no rash, dermatographism, urticaria, angioedema. Peripheral pulses: n ormal (2+) bilaterally. Back: n ormal. Extremities: n ormal ROM, no clubbing, no cyanosis, no edema. Genitalia: n ot performed. Assessment: * Assessment: 1. A llergic rhinitis due to pollen - J30.1 (Primary) 2 . A llergic rhinitis due to animal (cat) (dog) hair and dander - J30.81 3 . O ther allergic rhinitis - J30.89 4 . O ther chronic allergic conjunctivitis - H10.45 5 . H ypertrophy of nasal turbinates - J34.3 6 . C hronic rhinitis - J31.0? 7. M oderate persistent asthma, uncomplicated - J45.40 8 . M ild persistent asthma, uncomplicated - J45.30 9 . S evere persistent asthma, uncomplicated - J45.50 Plan: * Treatment: 2. A llergic rhinitis due to animal (cat) (dog) hair and dander Notes: Follow allergen avoidance, meds and consider SCIT as an adjunctive treatment to current regimen 3. O ther allergic rhinitis Notes: Follow allergen avoidance, meds and consider SCIT as an adjunctive treatment to current regimen 4. O ther chronic allergic conjunctivitis Notes: Given ocular signs and symptoms I encouraged allergy avoidance measures and meds as above. If symptoms persist, consider adding additional medications including intraocular antihistamine/mast cell stabilizer, PRN and consider SCIT as an adjunctive measure * Procedure Codes: 9 5004 PRICK TESTS, Units: 72.00 , 69898 INTRADERMAL TESTS, 92856 MEASURE BLOOD OXYGEN LEVEL, 29914 SELF-MGMT EDUC & TRAIN, 1 PT, S9441 ASTHMA ED NON-MD PROV PER SESSION, 16463 PT-FOCUSED TH RISK ASSMT, G8427 DOC MEDS VERIFIED W/PT OR RE * Preventive Medicine: Counseling: M edication instruction: W atch for side effects of prescribed medications, Nasal steroid/antihistamine instruction: avoid septum. E ducation: G ENERAL EDUCATION: Our staff spent an additional 30 minutes in direct contact with the patient educating them on their current diagnoses and proper treatment and prevention of symptoms and the proper use of medications. E ducation 2: A RC EDUCATION: Our staff discussed the appropriate allergen avoidance measures and medication utilization including upper airway hygiene with daily nasal washes given the patient's clinical status and diagnoses. SCIT EDUCATION: Discussed allergy immunotherapy including the relative risks, benefits and alternatives to this treatment as an adjunctive measure to current therapy, Allergy Immunotherapy: Risks: bleeding, infection, allergic reaction, anaphylaxis = severe allergic reaction that can cause ; Benefits: reduced need for medications, improved symptoms, disease modification. Alternatives: watch/wait, change medication regimen, improve allergy avoidance measures, Our staff discussed the warning signs of anaphylaxis and the indications to use self-injectable epinephrine and seek urgent or emergent care. P atient education material sent to portal? Y es * Follow Up: 4 Weeks (Reason: Evaluation and Management) * Billing Information: * Visit Code: * Procedure Codes: 97870 PRICK TESTS. Units: 72.00. 62172 INTRADERMAL TESTS. 57836 MEASURE BLOOD OXYGEN LEVEL. 02843 SELF-MGMT EDUC & TRAIN, 1 PT. S9441 ASTHMA ED NON-MD PROV PER SESSION. 72445 PT-FOCUSED HLTH RISK ASSMT. G8427 DOC MEDS VERIFIED W/PT OR RE. * Electronic signature of Ivis Sarabia DNP, FNP-C on 01/02/2025 at 08:36 AM CDT Sign off status: Pending * Provider: TONI Freeman Date: 0 12/18/2024 Generated for Bonnie moore/Dyana/eTlivsmitting on: 0 01/02/2025 08:36 AM CDT History and Physical Notes * HPI (History of Present Illness) Category Sub-Category Detail Notes Category Not es *Introduction HPI: x Examination Category Sub-Category Detail Notes Category Not es General examination HEENT: pupils equal , round, and reactive to light and accommodation, conjunctiva are injected bilaterally, no tenderness to palpation of the sinuses, TM's without evidence of acute infection, turbinates 2+ swollen and pale inferiorly bilaterally, clear rhinorrhea is present, no polyps noted, no septal perforation, posterior oropharynx is erythematous and cobblestoning is present, erythema on pharyngeal wall, no exudates, no tongue swelling, and uvula is midline Neck, thyroid : supple, non-tender, no anterior cervical lymphadenopathy Heart: RRR, S1-S2, no murmu rs, no rubs, no gallops Lungs: clear to auscultatio n and percussion in all lung rogers, no wheezes or crackles Abdomen: soft, NT/ND, normal active bowel sounds Extremities: normal ROM, no clubb ing, no cyanosis, no edema General appearance: pleasant, well-devel oped, well-nourished Skin: normal, no rash, deny matographism, urticaria, angioedema Neurologic exam: unremarkable Oral cavity: normal, no lesions Breasts : not performed Peripheral pulses: normal (2+) bilatera lly Back: normal Genitalia: not performed
--- NOTE | ~2025-01-02 | MM_ITS ---
EXAMINATION: MM screening romero BI w russel HISTORY: Screening TECHNIQUE: Craniocaudal and mediolateral oblique 3-D tomosynthesis images were obtained and synthetic 2-D images were generated. CAD analysis was submitted and interpreted. COMPARISON: Comparison to multiple prior studies sequentially, with oldest reviewed study dated 06/03/2021. BREAST PARENCHYMAL COMPOSITION: The breasts are heterogeneously dense, which may obscure small masses. FINDINGS: There is no evidence of suspicious mass, calcification, or architectural distortion to suggest malignancy in either breast. IMPRESSION: 1. No mammographic evidence of malignancy. 2. Recommend routine screening mammography in one year. BI-RADS Category 1: Negative Reviewed, dictated and finalized at location B.
--- OUTSIDE RECORDS SUMMARY | 2025-01-02 08:37 | XMS_ITS | Patient Health Record ---
Author Organization [facility] ([address]) Address [address] [place] [address] Care Team Providers Care Supervisor Of Officials Name Role Phone Ronnie Patel Primary Care Provider [phone] Mayur Maldonado Unavailable [phone] NAGI Patel MD, Patrick Unavailable Unavaila Ivis Meraz Unavailable [phone] Reason For Referral No Information Social History Sex Assigned At : Social History Observation Description Sex Assigned At Female Problems Problem Type SNOMED Code ICD Code Onset Dates Problem Status W/U Status Risk Notes Problem Chronic allergic conjunctivitis (77544606) Other chronic allergic conjunctivitis (H10.45) Active confirmed Problem Allergic rhinitis caused by pollen (disorder) (85189399) Allergic rhinitis due to pollen (J30.1) Active confirmed Problem Allergic rhinitis (16068092) Other allergic rhinitis (J30.89) Active confirmed Problem Chronic rhinitis (34876309) Chronic rhinitis (J31.0) Active confirmed Problem Uncomplicated mild persistent asthma (122683630) Mild persistent asthma, uncomplicated (J45.30) Active confirmed Problem Uncomplicated moderate persistent asthma (282003446) Moderate persistent asthma, uncomplicated (J45.40) Active confirmed Problem Uncomplicated severe persistent asthma (527749779) Severe persistent asthma, uncomplicated (J45.50) Active confirmed Problem Allergic rhinitis caused by animal hair and dander (739361555094351) Allergic rhinitis due to animal (cat) (dog) hair and dander (J30.81) Active confirmed Plan Of Treatment No Information Insurance Providers Payer Name Payer Address Payer Phone Subscriber Number Group Number Insured Name Patient Relationship to Insured Coverage Start Date Coverage End Date [facility] [address] [place] [address] [phone] [id number] Raine Cota Self - patient is the insured
--- OUTSIDE RECORDS SUMMARY | 2025-01-02 08:37 | XMS_ITS | Patient Health Record ---
Author Organization James Rae MD PA Address [address] [facility] [address] [place], [place] [id number] Care Team Providers Care Clothing Presser Name Role Phone Molly Ly Primary Care Provider Kaiden quinteros MagalysVicki gurrola Unavailable [phone] Allergies Allergen (clinical drug ingredient) Drug/Non Drug [...] doing things No Section Notes: Relocated from [place]. 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 Relocated from [place]. Hus band has leukemia that is in remission. Relocated from [place]. Hus band has leukemia that is in remission. Relocated from [place]. Hus band has leukemia that is in remission. Relocated from [place]. Hus band has leukemia that is in remission. Relocated from [place]. Hus band has leukemia that is in remission. Relocated from [place]. Hus band has leukemia that is in remission. Relocated from [place]. Hus band has leukemia that is in remission. Relocated from [place]. Adela band has leukemia that is in remission. Relocated from [place]. 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 Relocated from [place]. 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 Relocated from [place]. 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 Relocated from [place]. 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 Problems Problem Type SNOMED Code ICD Code Onset Dates Problem Status W/U Status Risk Notes Problem Vitamin D deficiency (01462701) Vitamin D deficiency (E55.9) Active confirmed Problem Adjustment disorder with mixed anxiety and depressed mood (990899235) Adjustment disorder with mixed anxiety and depressed mood (F43.23) Active confirmed She is having increased anxiety -- will increase prozac to 30mg QD. Problem Multiple sclerosis (80211660) Multiple sclerosis (G35) Active confirmed Patient who [...] which we will supplement. Problem Joint pain (25082308) Pain in unspecified joint (M25.50) Active confirmed She has intermittent joint pain. She was diagnosed with lupus in the past. She can use naproxen PRN. Problem Frequency of micturition (156402350) Frequency of micturition (R35.0) Active confirmed Check UA -- call for results. Problem Fatigue (87228249) Fatigue (R53.83) Active confirmed Not as big of a problem as it has been in the past. Encounters Encounter Location Date Provider Diagnosis James Rae MD PA [address] [facility] [address] [place], [place] [id number] 12/27/2024 Vicki Dowell Plan Of Treatment Pending Test Test Name [...] icd10 05/13/2015 TSH+Free T4 (E03.9) icd10 06/11/2014 TSH+Free T4 (E03.9) icd10 02/19/2014 Lipid Panel (E78.2) icd10 06/09/2018 Hepatitis Panel General (OCREVUS) CPT: 8 6704, 09188, 40396, 69112, 54564 05/22/2020 Hepatic Function Panel (7) 06/09/2018 CBC (D64.9) icd10 12/23/2017 CBC (D64.9) icd10 09/03/2014 Liver Function Test (LFT) (Z79.899) icd1 0 12/23/2017 MRI : Brain [place] [address]) 11/05/2015 COMPREHENSIVE METABOLIC PANEL (Z79.899) icd10 06/26/2020 [...] Brain with [place] 87847) 06/11/2014 MRI : Cervical with and without Contrast (CPT 62232) 06/11/2014 Insurance Providers Payer Name Payer Address Payer Phone Subscriber Number Group Number Insured Name Patient Relationship to Insured Coverage Start Date Coverage End Date [facility] [address] [address] [place] [address] [phone] [id number] Raine Cota Self - patient is the insured Medical (General) History Medical History History ICD Code multiple sclerosis Lupus Surgical History Surgery Date(Month/Year) section, twice cervical ablation
--- OUTSIDE RECORDS SUMMARY | 2025-01-02 08:37 | XMS_ITS | Patient Health Record ---
Author Organization [facility] Address [address] [place] [address] Care Team Providers Care Senior Warehouse Clerk Name Role Phone Andry Lane Primary Care [...] Insured Coverage Start Date Coverage End Date [facility] [address] [place] [address] [id number] Raine Cota Self - patient is the insured 1
--- OUTSIDE RECORDS SUMMARY | 2025-01-02 08:37 | XMS_ITS | Clinical Summary ---
Author Organization [facility] Address [address] [place] [address] Care Team Providers Care Belt Turner Name Role Phone Delroy Miller MD Primary Care Provider [phone] Allergies Active Allergy Reactions Criticality Noted Date Comments Penicillins Hives Medium 04/13/2013 Hives Medications amLODIPine (NORVASC) 5 mg tablet 04/09/2022 Active aspirin 81 mg enteric coated tablet Take 1 tablet (81 mg total) by mouth daily Active multivitamin tabletIndication s:Vitamin Deficiency Prevention Take 1 tablet by mouth Active calcium carbonate-vit D3-min 600 mg calcium- 200 unit tablet Take by mouth Active mtpvdfqn-hyhx-cn llag-hyalur ac [id number] mg capsule Take by mouth Active FLUoxetine [...] Type Department Care Team Description 10/24[facility] [address] [place] [address] Radha Luque RMA 10/19/2024 11:30 AM CDT Telemedicine [facility] Medicine Multiple Sclerosis [address] [facility] [address] [place] [address] Merrick Yuen MD Multiple sclerosis (HCC) (Primary Dx) from Last 3 Months Social History Tobacco Use Types Packs/Day Years Used Date Smoking Tobacco: Former Cigarettes S tarted: 12/08/2012 Tobacco Cessation:Counseling Given: Not Answered Comments Unknown Sex and Gender Information Value Date Recorded Sex Assigned at Not on file Legal Sex Female 3:13 AM OPTOMETRY TEACHER Gender Identity Female 03/10/2024 5:43 AM CDT Sexual Orientation Straight 03/10/2024 5: 43 AM CDT Obstetrics History Last Filed Vital Signs Vital Sign Reading Time Taken Comments Blood Pressure 112/80 03/14/2024 12:51 PM OPTOMETRY TEACHER Pulse 103 03/14/2024 12:51 PM OPTOMETRY TEACHER Temperature 36.3 C (97.3 F) 03/14/2024 12:51 PM OPTOMETRY TEACHER Respiratory Rate - - Oxygen Saturation 95% 04/07/2013 11:47 AM OPTOMETRY TEACHER Inhaled Oxygen Concentration - - Weight 75.8 kg (167 lb 3.2 oz) 03/14/2024 12:51 PM OPTOMETRY TEACHER Height 157.5 cm (5' 2) 04/07/2013 11:47 AM OPTOMETRY TEACHER Body Mass Index - - Plan of Treatment Health Maintenance Due Date Last Done Comments Cervical Cancer Screening 1972 Colon Cancer Screening-Colonoscopy 1972 Depression Screening 1972 Hepatitis C Screening 1972 Hepatitis B Screening 1990 Regular Well Visit/Exam 18-64 1990 Breast Cancer Screening-Mammogram 04/27/2014 013 Zoster Vaccine (2 of 2) 10/15/2023 08/20/2023 Influenza Vaccine (#1) 2025 DTaP/Tdap/Td Vaccine (2 - Td or Tdap) 2033 07/30/2023 Pneumococcal vaccine <65 Aged Out No longer eligible based on patient's age to complete this topic Procedures Procedure Name Priority Date/Time Associated Diagnosis Comments CBC WITH AUTO DIFFERENTIAL Routine 10/09/2024 3:26 PM CDT COMPREHENSIVE METABOLIC PANEL Routine 10/09/2024 3:26 PM CDT Multiple sclerosis (HCC) SCREENING MAMMOGRAM 2D BILATERAL Routine 04/27/2013 8:03 AM OPTOMETRY TEACHER from Last 3 Months or Most Recently Relevant to Health Maintenance Results * CBC with auto differential (10/09/2024 3:26 PM CDT) WBC 5.0 3.8 - 10.8 Thousand/u L [facility] RBC, POC 4.53 3.80 - 5.10 Million/uL [facility] Hgb 14.0 11.7 - 15.5 g/dL [facility] Hct 42.8 35.0 - 45.0 % [facility] MCV 94.5 80.0 - 100.0 fL [facility] MCH 30.9 27.0 - 33.0 pg [facility] MCHC 32.7 32.0 - 36.0 g/dL [facility] Comment: For adults, a slight decrease in the calculated MCHC value (in the range of 30 to 32 g/dL) is most likely not clinically significant; however, it should be interpreted with caution in correlation with other red cell parameters and the patient's clinical condition. Rdw 12.9 11.0 - 15.0 % [facility] Platelets 185 140 - 400 Thousand/u L [facility] MPV 10.8 7.5 - 12.5 fL [facility] Neutrophils, abs 3,215 1,500 - 7,800 cells/uL [facility] Lymphocytes, abs 1,205 850 - 3,900 cells/uL [facility] Monocyte abs 390 200 - 950 cells/uL [facility] Eosinophils, abs 140 15 - 500 cells/uL [facility] Basophils, abs 50 0 - 200 cells/uL [facility] Neutrophils 64.3 % [facility] Lymphocyte pct 24.1 % [facility] Monocytes 7.8 % [facility] Eosinophils 2.8 % [facility] Basophils 1.0 % [facility] 10/09/2024 3:26 PM CDT 10/09/2024 11:25 PM CDT Narrative [facility] - 10/10/2024 2:43 AM CDT FASTING:NO FASTING: NO us Min Wilfrid SAVAGE LAB BLOOD ORDERABLES Final Resul t [facility] [address] [place] [address] * (ABNORMAL) Comprehensive metabolic panel (10/09/2024 3:26 PM CDT) Glucose 112(H) 65 - 99 mg/dL [facility] Comment: Fasting reference interval For someone without known diabetes, a glucose value between 100 and 125 mg/dL is consistent with prediabetes and should be confirmed with a follow-up test. BUN 14 7 - 25 mg/dL [facility] Creatinine 0.75 0.50 - 1.03 mg/dL [facility] eGFR 96 > OR = 60 mL/min/1.7 3m2 [facility] BUN/creat ratio SEE NOTE: - (calc) [facility] Comment: Not Reported: BUN and Creatinine are within reference range. Sodium 139 135 - 146 mmol/L [facility] Potassium, pl 3.9 3.5 - 5.3 mmol/L [facility] Chloride 102 98 - 110 mmol/L [facility] CO2 30 20 - 32 mmol/L [facility] Calcium 9.4 8.6 - 10.4 mg/dL [facility] Protein, sr 6.8 6.1 - 8.1 g/dL [facility] Albumin 4.6 3.6 - 5.1 g/dL [facility] GLOBULIN 2.2 1.9 - 3.7 g/dL (calc) [facility] Alb/glob ratio 2.1 1.0 - 2.5 (calc) [facility] Bilirubin, total 0.4 0.2 - 1.2 mg/dL [facility] Alk phos 80 37 - 153 U/L [facility] AST 21 10 - 35 U/L [facility] ALT (SGPT) 21 6 - 29 U/L [facility] Blood 10/09/2024 3:26 PM CDT 10/09/2024 11:25 PM CDT Narrative [facility] - 10/10/2024 2:43 AM CDT FASTING:NO FASTING: NO us Merrick Yuen MD LAB BLOOD ORDERABLES Final Resul t [facility] [address] [place] [address] * Screening Mammogram 2D Bilateral (04/27/2013 8:03 AM OPTOMETRY TEACHER) Anatomical Region Laterality Modality Breast Bilateral Mammography 04/27/2013 8:03 AM OPTOMETRY TEACHER Impressions 04/27/2013 9:13 AM OPTOMETRY TEACHER 1. A left MLO view asymmetry requires [...] Larios M.D. KL:kamaljit 09:09 AM 09:09 AM [facility] [EOD] Narrative 04/27/2013 9:13 AM OPTOMETRY TEACHER EXAMINATION: BILATERAL SCREENING MAMMOGRAPHY HISTORY: Baseline mammogram. [...] Larios M.D. KL:kamaljit 09:09 AM 09:09 AM [facility] [EOD] [facility] Leandro Portillo MD IMG MAMMO PROCEDURES Final Result from Last 3 Months or Most Recently Relevant to Health Maintenance Insurance [employer] OOS BLUE ACCESS OOS Care Teams Belt Turner Relationship Specialty Start Date End Date Delroy Miller MD PCP - General Internal Medicine 08/02/23
--- OUTSIDE RECORDS SUMMARY | 2025-01-02 08:37 | XMS_ITS | Patient Health Record ---
Author Organization [facility] Physician Laurie es Billing Info Address [address] [place] [address] [place] [address] Care Team Providers Care Whizzer Name Role Phone ROSA ELENA TEJADA Primary Care Provider YOUNG LAMAR Allergies Allergen (clinical drug ingredient) [...] Problem Status W/U Status Risk Notes Problem 63105669 MS (multiple sclerosis) (G35) Active confirmed Problem 672310531 Perimenopausal vasomotor symptoms (N95.1) Active confirmed Problem 19110290 Elevated blood s ugar (R73.9) Active confirmed Problem 88369019 Hypercholesterem ia (E78.00) Active confirmed Plan Of Treatment No Information Insurance Providers Payer Name Payer Address Payer Phone Subscriber Number Group Number Insured Name Patient Relationship to Insured Coverage Start Date Coverage End Date [employer] CHOICE POS II [address] [place] [id number] Raine Cota Self - patient is the insured 2 3 Medical (General) History Medical History History ICD Code Multiple sclerosis 05/31 mammo 07/30 mammo 12/29 pap 12/29 cologuard neg Surgical History Surgery Date(Month/Year) ABLATION 04/2013 C section [id number]
== END 2025-01-02 08:27 | disposition home or self-care (01) ==
PROVIDERS: PCP Internal Medicine; Visit Provider Internal Medicine
DX: Z12.31 Encounter for screening mammogram for malignant neoplasm of breast (principal)
CPT/HCPCS: 77063; 77067